=== PATIENT | female | born 1960 | race Caucasian/White ===

== ENCOUNTER 2024-06-29 09:44 | Inpatient (IN) | payer OTHER, MEDICAID ==
[~2024-06-29] VITALS: Ht 167.6 cm; Wt 74.1 kg
--- NOTE | 2024-06-29 10:02 | ED.PDOC ---
Altered Mental Status HPI Comments 64-year-old female brought in by EMS presents with a chief complaint of ALOC. Per EMS, called EMS due to patient having a mechanical fall at home today trying to use the restroom. Patient fell backwards, did not hit her head, nor did she lose consciousness. Patients is POA and wants patient mimi huang due to her increasing confusion. Patients husbands relayed to EMS that patient has been confused for the past few days. Patient is A/Ox2 at this time. Blood sugar was 96. Chief Complaint: ALOC Time Seen by MD: 09:54 Reviewed Notes: Medications, Allergies Allergies: Coded Allergies: NO KNOWN ALLERGIES (Unverified , 06/29/24) Information Source: Emergency Med Personnel Mode of Arrival: EMS Severity: Moderate, Unable to Care for Self Timing: Days Duration: Since onset Prehospital treatment: Accucheck Quality: Change in Behavior, Confusion Recent: Trauma (MECHANICAL FALL) History of: None Past Medical History PAST MEDICAL HISTORY: Anxiety, Arthritis, Depression Surgical History: Denies all surgeries HUB ASSOCIATE History: Denies all HUB ASSOCIATE Hx Family History Family History: Reviewed,noncontributory to illness Social History Smoker: Non-Smoker Alcohol: Denies ETOH Use Drugs: Denies Drug Use Lives In: Home Constitutional: denies: chills, diaphoresis, fatigue, fever, malaise, sweats, weakness, others EENTM: denies: blurred vision, double vision, ear bleeding, ear discharge, ear drainage, ear pain, ear ringing, eye pain, eye redness, hearing loss, mouth pain, mouth swelling, nasal discharge, nose bleeding, nose congestion, nose pain, photophobia, tearing, throat pain, throat swelling, voice changes, others Respiratory: denies: cough, hemoptysis, orthopnea, SOB at rest, shortness of breath, SOB with excertion, stridor, wheezing, others Cardiovascular: denies: chest pain, dizzy spells, diaphoresis, Dyspnea on exertion, edema, irregular heart beat, left arm pain, lightheadedness, palpitations, PND, syncope, others Gastrointestinal: denies: abdomen distended, abdominal pain, blood streaked bowels, constipated, diarrhea, dysphagia, difficulty swallowing, hematemesis, melena, nausea, poor appetite, poor fluid intake, rectal bleeding, rectal pain, vomiting, others Genitourinary: denies: abnormal vagina bleeding, burning, dyspareunia, dysuria, flank pain, frequency, hematuria, incontinence, pain, , vagina discharge, urgency, others Neurological: denies: dizziness, fainting, headache, left sided numbness, left sided weakness, numbness, paresthesia, pre-existing deficit, right sided numbness, right sided weakness, seizure, speech problems, tingling, tremors, weakness, others Musculoskeletal: denies: back pain, gout, joint pain, joint swelling, muscle pain, muscle stiffness, neck pain, others Integumetry: denies: bruises, change in color, change in hair/nails, dryness, laceration, lesions, lumps, rash, wounds, others Allergic/Immunocompromised: denies: Difficulty Healing, Frequent Infections, Hives, Itching, others Hematologic/Lymphatic: denies: anemia, blood clots, easy bleeding, easy bruising, swollen glands, others Endocrine: denies: excessive hunger, excessive sweating, excessive thirst, excessive urination, flushing, intolerance to cold, intolerance to heat, unexplained weight gain, unexplained weight loss, others Psychiatric: denies: anxiety, bipolar disorder, depression, hopeless, panic disorder, schizophrenia, sleepless, suicidal, others Unable to Obtain due to: Altered Mental Status All Other Systems: Reviewed and Negative Physical Exam General Appearance: No Apparent Distress, Normal HEENT: Normal ENT Inspection, Pharynx Normal, TMs Normal Neck: Full Range of Motion, Non-Tender, Normal, Normal Inspection Respiratory: Chest Non-Tender, Lungs Clear, No Accessory Muscle Use, No Respiratory Distress, Normal Breath Sounds Cardiovascular: No Edema, No JVD, No Murmur, No Gallop, Normal Peripheral Pulses, Regular Rate/Rhythm Breast Exam: Deferred Gastrointestinal: No Organomegaly, Non Tender, No Pulsatile Mass, Normal Bowel Sounds, Soft Genitalia: Deferred Pelvic: Deferred Rectal: Deferred Extremities: No calf tenderness, Normal capillary refill, Normal inspection, Normal range of motion, Non-tender, No pedal edema Musculoskeletal : Apperance: Normal Neurologic: Alert, creasing and cutting press feeder II-XII nml as Tested, No Motor Deficits, Normal Affect, Normal Mood, No Sensory Deficits Cerebellar Function: Normal Reflexes: Normal Skin: Dry, Normal Color, Warm Lymphatic: No Adenopathy Was a procedure done? Was a procedure done?: No Differential Diagnosis (ALOC) Differential Diagnosis: Dehydration, Hypoglycemia, Encephalopathy, Hypoxemia, Seizure, Closed Head Injury, Drug Overdose, ETOH Intoxication, Heart Failure, Renal Failure X-Ray, Labs, Meds, VS Vital Signs Date Time Temp Pulse Resp B/P (MAP) Pulse Ox O2 Delivery O2 Flow Rate FiO2 06/29/24 10:49 101 24 102/55 (71) 90 06/29/24 10:39 97 20 92 Room Air* 0 21 06/29/24 10:02 100 06/29/24 09:54 98.8 76 16 146/84 (104) 98 Lab Test 06/29/24 10:39 06/29/24 10:20 Range/Units White Blood Count 8.1 4.4-10.8 10^3/uL Red Blood Count 4.92 4.0-5.20 10^6/uL Hemoglobin 14.7 12.2-16.2 g/dL Hematocrit 44.3 36.0-46.0 % Mean Corpuscular Volume 90.1 80.0-100.0 fL Mean Corpuscular Hemoglobin 29.8 28.0-32.0 pg Mean Corpuscular Hemoglobin Concent 33.1 32.0-36.0 g/dL Red Cell Distribution Width 17.4 H 11.8-14.3 % Platelet Count 105 L 140-450 10^3/uL Mean Platelet Volume 8.1 6.9-10.8 fL Neutrophils (%) (Auto) 94.9 H 37.0-80.0 % Lymphocytes (%) (Auto) 3.9 L 10.0-50.0 % Monocytes (%) (Auto) 0.6 0.0-12.0 % Eosinophils (%) (Auto) 0.5 0.0-7.0 % Basophils (%) (Auto) 0.1 0.0-2.0 % Neutrophils # (Auto) 7.7 1.6-8.6 10 ^3/uL Lymphocytes # (Auto) 0.3 L 0.4-5.4 10 ^3/uL Monocytes # (Auto) 0.1 0-1.3 10 ^3/uL Eosinophils # (Auto) 0 0-0.8 10 ^3/uL Basophils # (Auto) 0 0-0.2 10 ^3/uL Nucleated Red Blood Cells 0.4 % Sodium Level 128 L 136-145 mmol/L Potassium Level 4.3 3.5-5.1 mmol/L Chloride Level 98 98-107 mmol/L Carbon Dioxide Level 22 20-31 mmol/L Anion Gap 8 5-15 Blood Urea Nitrogen 9 9-23 mg/dL Creatinine 0.84 0.550-1.02 mg/dL Glomerular Filtration Rate Calc 77 >90 mL/min BUN/Creatinine Ratio 10.7 10.0-20.0 Serum Glucose 85 74-106 mg/dL Calcium Level 9.2 8.7-10.4 mg/dL Troponin I High Sensitivity 74 *H </=34 ng/L POC Glucose 80 70-106 mg/dl Current Medications Medications (Trade) Dose Ordered Sig/[place] Route Start Time Stop Time Status Last Admin Sodium Chloride 1,000 ml @ 1,000 mls/hr Q1H ONCE IV 06/29/24 10:00 06/29/24 10:59 DC 06/29/24 11:10 Time of 1ST Reevaluation: 10:24 Reevaluation 1ST: Unchanged Patient Education/Counseling: Diagnosis, Treatment, Prognosis Family Education/Counseling: Diagnosis, Treatment, Prognosis Departure 1 Departure Time of Disposition: 13:31 (Patient with altered mental status unknown source. Checking labs UA x-ray and CT scan. X-rays concerning for possible pneumonia. We will empirically cover patient with antibiotics admit for further workup.) Impression: Primary Impression: Metabolic encephalopathy Additional Impressions: Altered mental status Qualified Codes: R41.0 - Disorientation, unspecified Left upper lobe pneumonia Qualified Codes: J18.9 - Pneumonia, unspecified organism Generalized weakness Disposition: ADMITTED INPATIENT Admit to: Med Surg Condition: Guarded Critical Care Note Critical Care Time?: Yes Critical care comment: Altered mental status Authorized and Performed by: Maikel Martin MD Total critical care time: Approximately 37 minutes Due to a high probability of clinically significant, life threatening deterioration, the patient required my highest level of preparedness to intervene emergently and I personally spent this critical care time directly and personally managing the patient. This critical care time included obtaining a history; examining the patient; pulse oximetry; ordering and review of studies; arranging urgent treatment with development of a management plan; evaluation of patient's response to treatment; frequent reassessment; and, discussions with other providers. This critical care time was performed to assess and manage the high probability of imminent, life-threatening deterioration that could result in multi-organ failure. It was exclusive of separately billable procedures and treating other patients and teaching time. Please see my other sections and the rest of the note for further information on patient assessment and treatment. Stability Stability form required: No I personally scribed for MAIKEL MARTIN MD ([email or web address]) on 06/29/24 at 10:02. Electronically submitted by Christiano Weller ([email or web address]). MAIKEL MARTIN MD Jun 29, 2024 10:02
--- NOTE | 2024-06-29 10:24 | DVH ---
EXAM: CT HEAD WITHOUT CONTRAST HISTORY: ams, fall COMPARISON: None TECHNIQUE: Axial images of the head were obtained and reformatted in coronal and sagittal planes. All CT scans at this medical facility are performed using dose modulation techniques as appropriate t o a performed exam including the following: Automated exposure control was utilized; adjustment of th e MA and/or KV according to patient size; and use of iterative reconstruction technique. CT Dose: CTDI volume is 58.13 mGy. Dose-length product is 1145.43 mGy*cm FINDINGS: There is no evidence of acute intracranial hemorrhage, mass, mass effect midline shift. There is no h ydrocephalus. There is a 2.6 cm retro cerebellar cystic collection likely an arachnoid cyst. Morris-whi te matter differentiation is maintained. The visualized paranasal sinuses are clear. The calvarium is intact. IMPRESSION: 1. No acute intracranial process. 2. 0.6 cm retro cerebellar cystic collection likely an arachnoid cyst. HS:Y
--- NOTE | 2024-06-29 10:25 | ECG ---
[facility] Test Date: 2024-06-29 Test Time: 10:02:19 Pat Name: HANS SUE Department: er Room: 0204T Gender: F Ehr Trainer: gustavo : 1960 Requested By: MAIKEL MARTIN Order Number: [id number] Reading MD: Sin Lock Measurements Intervals [place] Rate: 100 P: 79 CO: 146 QRS: 210 QRSD: 94 T: 66 QT: 313 QTc: 404 Interpretive Statements Sinus tachycardia Atrial premature complexes Probable left atrial enlargement Probable right ventricular hypertrophy Abnrm T, consider ischemia, anterolateral lds ST elevation, consider inferior injury Baseline wander in lead(s) II,III,aVF Electronically Signed On 07-04-2024 17:04:52 PST by Sin Lock Please click the below link to view image of tracing.
--- NOTE | 2024-06-29 10:34 | DVH ---
CHEST RADIOGRAPH Indication: ams, fall Technique: Single frontal view of the chest was obtained COMPARISON: None FINDINGS: Lines and Tubes: None Lungs: Left upper lobe airspace consolidation or scarring. Pleura: No effusion. No pneumothorax. Cardiomediastinal contours: Unremarkable Bones: Unremarkable IMPRESSION: Left upper lobe airspace consolidation or scarring.
[2024-06-29 10:39] VITALS: PULSE 97; RESP 20; O2SAT 92
[2024-06-29 10:51] LABS: Basophils # (auto) 0 10 ^3/uL (0-0.2); Basophils % (auto) 0.1 % (0.0-2.0); Eosinophils # (auto) 0 10 ^3/uL (0-0.8); Eosinophils % (auto) 0.5 % (0.0-7.0); Hematocrit 44.3 % (36.0-46.0); Hemoglobin 14.7 g/dL (12.2-16.2); Lymphocytes # (auto) 0.3 10 ^3/uL (0.4-5.4); Lymphocytes % (auto) 3.9 % (10.0-50.0); Mean Corpuscular Hemoglobin 29.8 pg (28.0-32.0); Mean Corpuscular Hgb Conc. 33.1 g/dL (32.0-36.0); Mean Corpuscular Volume 90.1 fL (80.0-100.0); Monocytes # (auto) 0.1 10 ^3/uL (0-1.3); Monocytes % (auto) 0.6 % (0.0-12.0); Neutrophils # (auto) 7.7 10 ^3/uL (1.6-8.6); Neutrophils % (auto) 94.9 % (37.0-80.0); Nucleated Red Blood Cells % 0.4 %; Platelet Count (auto) 105 10^3/uL (140-450); Red Blood Cells 4.92 10^6/uL (4.0-5.20); Red Cell Distribution Width 17.4 % (11.8-14.3); White Blood Cell 8.1 10^3/uL (4.4-10.8)
[2024-06-29] MEDS: SODIUM CHLORIDE 0.9% 1,000 ML IV ONE ×2 (11:10→13:30)
[2024-06-29 11:18] LABS: Chloride 98 mmol/L (98-107); Potassium 4.3 mmol/L (3.5-5.1)
[2024-06-29 11:19] LABS: Anion Gap 8 (5-15); Calcium 9.2 mg/dL (8.7-10.4); Carbon Dioxide 22 mmol/L (20-31)
[2024-06-29 11:24] LABS: BUN/Creatinine Ratio 10.7 (10.0-20.0); Blood Urea Nitrogen 9 mg/dL (9-23); Glucose 85 mg/dL (74-106)
[2024-06-29 11:32] LABS: Sodium 128 mmol/L (136-145)
[2024-06-29] MEDS: AZITHROMYCIN 500MG/ 250ML 250 ML IV ONE ×2 (13:30→23:00)
[2024-06-29] MEDS: ONDANSETRON HCL 4 MG/2 ML VIAL IV ONE (13:30)
[2024-06-29] MEDS: CEFEPIME 2GM/50ML NS 50 ML IV ONE (13:30)
[2024-06-29] MEDS: VANCOMYCIN 1GM/250ML KIT 200 ML IV ONE (14:42)
[2024-06-29] MEDS ORDERED: ACETAMINOPHEN 325 MG TAB PO PRN (14:45)
[2024-06-29] MEDS ORDERED: DOCUSATE SOD 100 MG CAP PO PRN (14:45)
[2024-06-29] MEDS ORDERED: ONDANSETRON HCL 4 MG/2 ML VIAL IV PRN (14:45)
[2024-06-29 14:51] LABS: Urine Bacteria None Seen /hpf (None Seen)
[2024-06-29 15:11] LABS: Urine Blood 1+ /uL (Negative); Urine Clarity Clear (Clear); Urine Color Yellow (Yellow); Urine Protein, UAD TRACE (Negative); Urine Specific Gravity 1.014 (1.001-1.035); Urine Squamous Epithelial Cell FEW /hpf (<5); Urine Urobilinogen Normal (Negative); Urine WBC 1 /HPF (0-5)
[2024-06-29] MEDS: SODIUM CHLORIDE 0.9% 1,000 ML IV SCH (15:46)
[2024-06-29] MEDS: ASPirin 81 mg TAB PO ONE (15:47)
--- NOTE | 2024-06-29 16:09 | DVHHP2 ---
History of Present Illness Reason for Visit: Metabolic encephalopathy History of Present Illness The patient is a 64-year-old female with past medical history of arthritis, depression, and anxiety who presented to [facility] ED for evaluation of altered level of consciousness. As reported patient's called EMS due to patient having a mechanical fall at home when she was trying to use the restroom, develop increasing confusion, left lower extremity redness/swelling, getting worse that prompted this visit. Patient was seen and evaluated in the ED, laboratory data shows WBC 8.1, platelets 105, sodium 128, potassium 4.3, BUN nine, creatinine 0.94, GFR 77, glucose 85, troponin 74. Chest x-ray revealing left upper lobe airspace consolidation or scarring. Patient was started on IV antibiotic regimen azithromycin, please see medication orders section in the computer. On my assessment, patient denied chest pain, no headache, no dizziness, no loss of consciousness, no shortness of breaths, no nausea, no vomiting, no fever, no chills. Patient was admitted for further bladimir luation and medical management. Past Medical History Anxiety, Arthritis, Depression Past Surgical History Denies all surgeries Family History Reviewed, noncontributory to the management of this case. Past Social History The patient lives at home, denies smoking, alcohol or illicit drugs abuse. Review of Systems Constitutional: Yes: Weakness; No: Fever, Chills, Sweats, Malaise, Other Eyes: No: Pain, Vision change, Conjunctivae inflammation, Eyelid inflammation, Other, Redness ENT: No: Ear pain, Ear discharge, Nose pain, Nose discharge, Nose congestion, Mouth pain, Mouth swelling, Throat pain, Throat swelling, Other Respiratory: No: Cough, Dry, Shortness of breath, SOB with excertion, Wheezing, Hemoptysis, Pleuritic Pain, Sputum, Wheezing, Other Cardiovascular: No: Chest Pain, Palpitations, Orthopnea, Paroxysmal Noc. Dyspnea, Edema, Lt Headedness, Other Gastrointestinal: No: Nausea, Vomiting, Abdominal Pain, Diarrhea, Constipation, Melena, Hematochezia, Other Genitourinary: No Dysuria, No Frequency, No Incontinence, No Hematuria, No Retention, No Other Musculoskeletal: other (Left lower extremity redness/swelling); No: neck pain, shoulder pain, arm pain, back pain, hand pain, leg pain, foot pain Skin: No: Rash, Lesions, Jaundice, Bruising, Other Neurological: No: Weakness, Numbness, Incoordination, Change in speech, Confusion, Seizures, Other Allergies: Coded Allergies: NO KNOWN ALLERGIES (Unverified , 06/29/24) Medications Current Medications Medications Dose Ordered Sig/[place] Route Start Time Stop Time Status Last Admin Dose Admin Fluoxetine HCl 20 mg DAILY PO 06/30/24 10:00 Gabapentin 100 mg DAILY PO 06/30/24 10:00 Azithromycin 250 ml @ 125 mls/hr DAILY IV 06/30/24 10:00 Aspirin 81 mg DAILY PO 06/30/24 10:00 Alprazolam 0.5 mg Q8HPRN PRN PO 06/29/24 14:45 Sodium Chloride 1,000 ml @ 120 mls/hr Q8H20M IV 06/29/24 14:45 06/29/24 15:46 120 MLS/HR Acetaminophen/ Hydrocodone Bitart 1 tab Q4HP PRN PO 06/29/24 14:45 Ondansetron HCl 4 mg Q4HP PRN IV 06/29/24 14:45 Docusate Sodium 100 mg BIDPRN PRN PO 06/29/24 14:45 Acetaminophen 650 mg Q6HP PRN PO 06/29/24 14:45 Exam Vital Signs Vital Signs Date Time Temp Pulse Resp B/P (MAP) Pulse Ox O2 Delivery O2 Flow Rate FiO2 06/29/24 10:49 101 24 102/55 (71) 90 06/29/24 10:39 Room Air* 0 21 06/29/24 09:54 98.8 General Appearance: Alert, Oriented X3, Cooperative, No acute distress HEENT: Atraumatic, PERRLA, EOMI, Mucous membr. moist/pink Respiratory: Normal air movement, Other (Diminished breath sounds) Cardiovascular: Regular rate, Normal S1, Normal S2, No murmurs Abdominal: Normal bowel sounds, Soft, No tenderness, No hepatospenomegaly, No masses Extremities: No clubbing, No cyanosis, No edema, Normal pulses, No tenderness/swelling Skin: No rashes, No breakdown, No significant lesion Neuro: Normal speech, Normal tone, Sensation intact, Cranial nerves 3-12 NL, Reflexes 2+, Other (Generalized weakness) Psych/Mental Status: Mental status NL, Mood NL Labs/Xrays Labs Test 06/29/24 14:30 06/29/24 10:39 06/29/24 10:20 06/29/24 10:13 Range/Units Troponin I High Sensitivity 64 *H </=34 ng/L White Blood Count 8.1 4.4-10.8 10^3/uL Red Blood Count 4.92 4.0-5.20 10^6/uL Hemoglobin 14.7 12.2-16.2 g/dL Hematocrit 44.3 36.0-46.0 % Mean Corpuscular Volume 90.1 80.0-100.0 fL Mean Corpuscular Hemoglobin 29.8 28.0-32.0 pg Mean Corpuscular Hemoglobin Concent 33.1 32.0-36.0 g/dL Red Cell Distribution Width 17.4 H 11.8-14.3 % Platelet Count 105 L 140-450 10^3/uL Mean Platelet Volume 8.1 6.9-10.8 fL Neutrophils (%) (Auto) 94.9 H 37.0-80.0 % Lymphocytes (%) (Auto) 3.9 L 10.0-50.0 % Monocytes (%) (Auto) 0.6 0.0-12.0 % Eosinophils (%) (Auto) 0.5 0.0-7.0 % Basophils (%) (Auto) 0.1 0.0-2.0 % Neutrophils # (Auto) 7.7 1.6-8.6 10 ^3/uL Lymphocytes # (Auto) 0.3 L 0.4-5.4 10 ^3/uL Monocytes # (Auto) 0.1 0-1.3 10 ^3/uL Eosinophils # (Auto) 0 0-0.8 10 ^3/uL Basophils # (Auto) 0 0-0.2 10 ^3/uL Nucleated Red Blood Cells 0.4 % Sodium Level 128 L 136-145 mmol/L Potassium Level 4.3 3.5-5.1 mmol/L Chloride Level 98 98-107 mmol/L Carbon Dioxide Level 22 20-31 mmol/L Anion Gap 8 5-15 Blood Urea Nitrogen 9 9-23 mg/dL Creatinine 0.84 0.550-1.02 mg/dL Glomerular Filtration Rate Calc 77 >90 mL/min BUN/Creatinine Ratio 10.7 10.0-20.0 Serum Glucose 85 74-106 mg/dL Calcium Level 9.2 8.7-10.4 mg/dL POC Glucose 80 70-106 mg/dl Urine Color Yellow Yellow Urine Clarity Clear Clear Urine pH 7.0 5.0-9.0 Urine Specific [place] 1.014 1.001-1.035 Urine Protein Trace H Negative Urine Ketones Negative Negative Urine Blood 1+ H Negative /uL Urine Nitrite Negative Negative Urine Bilirubin Negative Negative Urine Urobilinogen Normal Negative mg/dL Urine Leukocyte Esterase Negative Negative /uL Urine RBC 2 0 - 4 /hpf Urine Microscopic WBC 1 0-5 /HPF Urine Squamous Epithelial Cells Few <5 /hpf Urine Bacteria None seen None Seen /hpf Urine Glucose Normal Normal mg/dL PATIENT: KATHERINE SUE: [id number] UNIT: [id number] : 1960 LOC: ER ROOM / BED: / AGE / SEX: 64 / F ADM STATUS: REG ER SERVICE [id number] ORDERING PHYSICIAN: MAIKEL MARTIN MD PROCEDURE(s): HWOCT - HEAD WITHOUT CONTRAST REASON: , fall ORDER NUMBER(s): [id number], ACCESSION NUMBER(s): [id number] EXAM: CT HEAD WITHOUT CONTRAST HISTORY: , fall COMPARISON: None TECHNIQUE: Axial images of the head were obtained and reformatted in coronal and sagittal planes. All CT scans at this medical facility are performed using dose modulation techniques as appropriate to a performed exam including the following: Automated exposure control was utilized; adjustment of the MA and/or KV according to patient size; and use of iterative reconstruction technique. CT Dose: CTDI volume is 58.13 mGy. Dose-length product is 1145.43 mGy*cm FINDINGS: There is no evidence of acute intracranial hemorrhage, mass, mass effect midline shift. There is no hydrocephalus. There is a 2.6 cm retro cerebellar cystic collection likely an arachnoid cyst. Morris-white matter differentiation is maintained. The visualized paranasal sinuses are clear. The calvarium is intact. IMPRESSION: 1. No acute intracranial process. 2. 0.6 cm retro cerebellar cystic collection likely an arachnoid cyst. ORDERING PHYSICIAN: MAIKEL MARTIN MD PROCEDURE(s): CXRP - CHEST PORTABLE REASON: , fall ORDER NUMBER(s): [id number], ACCESSION NUMBER(s): [id number] CHEST RADIOGRAPH Indication: ams, fall Technique: Single frontal view of the chest was obtained COMPARISON: None FINDINGS: Lines and Tubes: None Lungs: Left upper lobe airspace consolidation or scarring. Pleura: No effusion. No pneumothorax. Cardiomediastinal contours: Unremarkable Bones: Unremarkable IMPRESSION: Left upper lobe airspace consolidation or scarring. Assessment/Plan Assessment/Plan Generalized weakness Altered mental status Pneumonia, unspecified organism Metabolic encephalopathy Disorientation, unspecified Left upper lobe pneumonia Plan 1. Admit to telemetry unit 2. Breathing treatment 3. Pain control management 4. IV antibiotic management 5. Management of fluids and electrolytes 6. Consultation for hospitalist 7. Diagnostic test chest x-ray 8. DVT prophylaxis on aspirin 9. Repeat labs CBC, CMP in a.m. 10. Home medication reviewed and reconciled 11. Continue with current medical management 12. Treatment plan discussed with patient and RN. Patient verbalized understanding. Plan discussed with: Patient, Other (RN) My Orders Orders - ANA MARÍA KABA DNP Procedure Category Date Status Time Fluoxetine Capsule PHA 06/30/24 In Process (Prozac Capsule) 10:00 Gabapentin Capsule PHA 06/30/24 In Process (Neurontin Capsule) 10:00 Azithromycin 500mg/ PHA 06/30/24 In Process 250ml (Zithromax 50 10:00 Aspirin Tablet PHA 06/30/24 In Process 10:00 Alprazolam Tablet PHA 06/29/24 In Process (Xanax Tablet) 14:45 Allergies MARY 06/29/24 In Process 14:35 Code Status CODE 06/29/24 Transmitted 14:35 Sodium Chloride 0.9% PHA 06/29/24 In Process 14:45 Oxygen Per Hour RT 06/29/24 Transmitted 14:35 Hydrocodone-Acet PHA 06/29/24 In Process 5/325mg Tab ([place] 14:45 Ondansetron Hcl PHA 06/29/24 In Process (Zofran) 14:45 Docusate Sodium PHA 06/29/24 In Process Capsule (Colace 14:45 Fall Risk Precautions MARY 06/29/[address] 14:35 Complete Blood Count LAB 06/30/24 Verified 04:00 Comprehensive LAB 06/30/24 Verified Metabolic Panel 04:00 Cardiac DIET 06/29/24 Transmitted Diet-2gna,Lofat,Lochol Dinner Condition: Serious MARY 06/29/24 In Process 14:35 Acetaminophen Tablet PHA 06/29/24 In Process (Tylenol Tablet) 14:45 Sequential MARY 06/29/24 In Process Compression Device Problem List: (1) Generalized weakness (2) Left upper lobe pneumonia (3) Metabolic encephalopathy (4) Altered mental status (5) Pneumonia, unspecified organism (6) Disorientation, unspecified Date of Service: Jun 29, 2024 Billing Provider: ANA MARÍA KABA DNP Common Visit Codes: 97531-NEANWLO INP/OBS CARE (HIGH) ANA MARÍA KABA DNP Jun 29, 2024 16:09
[2024-06-29] MEDS ORDERED: NITROGLYCERIN 0.4 MG SL TAB SL PRN ×2 (16:15→16:30)
[2024-06-29] MEDS ORDERED: MORPHINE SULFATE INJ 2 MG/ml SYRG IV PRN ×2 (16:15→16:30)
[2024-06-29 20:00] VITALS: PULSE 91; RESP 20; O2SAT 99
[2024-06-29 22:11] VITALS: BP 107/68; PULSE 96; RESP 19; TEMP 98; O2SAT 99
[2024-06-30] VITALS (7 sets, daily range): BP systolic 105–127; BP diastolic 56–61; PULSE 94–106; RESP 17–20; TEMP 98.2; O2SAT 96–100
[2024-06-30] MEDS: CEFEPIME 2GM/50ML NS 50 ML IV ONE (01:30)
[2024-06-30 10:02] LABS: Hepatitis B Surface Antigen Negative (Negative)
[2024-06-30 10:36] LABS: Hepatitis C Antibody Negative (Negative)
[2024-06-30] MEDS: FLUoxetine HCL 20 MG CAP PO SCH (12:20)
[2024-06-30] MEDS: ASPirin 81 mg TAB PO SCH (12:20)
[2024-06-30] MEDS: GABAPENTIN 100 MG CAP PO SCH (12:20)
[2024-06-30] MEDS: AZITHROMYCIN 500MG/ 250ML 250 ML IV SCH (12:21)
--- NOTE | 2024-06-30 14:58 | DVHPN2 ---
Subjective [age] IV Hold female with history of lung cancer, depression and anxiety, arthritis, comes with chief complaint of confusion, pneumonia, She was found to have a left upper lobe pneumonia and hyponatremia Changes from previous H/P or p: Changes Eyes: No Pain, No Vision change, No Conjunctivae inflammation, No Eyelid inflammation, No Other, No Redness ENT: No Ear pain, No Ear discharge, No Nose pain, No Nose discharge, No Nose congestion, No Mouth pain, No Mouth swelling, No Throat pain, No Throat swelling, No Other Cardiovascular: No Chest Pain, No Palpitations, No Orthopnea, No Paroxysmal Noc. Dyspnea, No Edema, No Lt Headedness, No Other Respiratory: No Cough, No Dry, No Shortness of breath, No SOB with excertion, No Wheezing, No Hemoptysis, No Pleuritic Pain, No Sputum, No Other Gastrointestinal: No Nausea, No Vomiting, No Abdominal Pain, No Diarrhea, No Constipation, No Melena, No Hematochezia, No Other Genitourinary: No Dysuria, No Frequency, No Incontinence, No Hematuria, No Retention, No Other Musculoskeletal: other (Left lower extremity redness/swelling); No neck pain, No shoulder pain, No arm pain, No back pain, No hand pain, No leg pain, No foot pain Skin: No Rash, No Lesions, No Jaundice, No Bruising, No Other Objective Vitals Vital Signs Date Time Temp Pulse Resp B/P (MAP) Pulse Ox O2 Delivery O2 Flow Rate FiO2 06/30/24 08:30 94 18 98 Nasal Cannula* 3 32 06/30/24 05:00 105/58 (74) 06/29/24 22:11 98.0 98.0 Intake/Output Intake and Output 06/30/24 07:00 Intake Total 4147 ml Output Total 650 ml Balance 3497 ml Intake Oral 267 ml IV Total 3880 ml Output Urine Total 650 ml General Appearance: Alert, Oriented X3, Cooperative Lungs: Clear to auscultation, Normal air movement Cardiovascular: Regular rate, Normal S1 Abdomen: Normal bowel sounds, Soft, No tenderness Extremities: No edema Medications Current Medications Medications Dose Ordered Sig/[place] Route Start Time Stop Time Status Last Admin Dose Admin Fluoxetine HCl 20 mg DAILY PO 06/30/24 10:00 06/30/24 12:20 20 MG Gabapentin 100 mg DAILY PO 06/30/24 10:00 06/30/24 12:20 100 MG Azithromycin 250 ml @ 125 mls/hr DAILY IV 06/30/24 10:00 06/30/24 12:21 125 MLS/HR Aspirin 81 mg DAILY PO 06/30/24 10:00 06/30/24 12:20 81 MG Alprazolam 0.5 mg Q8HPRN PRN PO 06/29/24 14:45 Sodium Chloride 1,000 ml @ 120 mls/hr Q8H20M IV 06/29/24 14:45 06/29/24 23:05 120 MLS/HR Acetaminophen/ Hydrocodone Bitart 1 tab Q4HP PRN PO 06/29/24 14:45 Ondansetron HCl 4 mg Q4HP PRN IV 06/29/24 14:45 Docusate Sodium 100 mg BIDPRN PRN PO 06/29/24 14:45 Acetaminophen 650 mg Q6HP PRN PO 06/29/24 14:45 Morphine Sulfate 2 mg Q30M PRN IV 06/29/24 16:30 Nitroglycerin 0.4 mg Q5MINP PRN SL 06/29/24 16:30 Laboratory Results Laboratory Tests 06/29/24 10:39 Urinalysis Test 06/29/24 10:13 Urine Color Yellow (Yellow) Urine Clarity Clear (Clear) Urine pH 7.0 (5.0-9.0) Urine Specific [place] 1.014 (1.001-1.035) Urine Protein Trace (Negative) H Urine Ketones Negative (Negative) Urine Blood 1+ /uL (Negative) H Urine Nitrite Negative (Negative) Urine Bilirubin Negative (Negative) Urine Urobilinogen Normal mg/dL (Negative) Urine Leukocyte Esterase Negative /uL (Negative) Urine RBC 2 /hpf (0 - 4) Urine Microscopic WBC 1 /HPF (0-5) Urine Squamous Epithelial Cells Few /hpf (<5) Urine Bacteria None seen /hpf (None Seen) Urine Glucose Normal mg/dL (Normal) Assessment/Plan Assessment/Plan Acute metabolic encephalopathy due to pneumonia and hyponatremia Hyponatremia Left upper lobe pneumonia Sepsis due to pneumonia Elevated troponin Anxiety and depression Arthritis Plan Pneumonia: IV antibiotics Rocephin and Zithromax Hyponatremia: Normal saline Oxygen as needed Elevated troponin: Aspirin , Echo, Cardiology consult Monitor closely Full code Advance directives discussed for 20 minute Plan discussed with: Patient Date of Service: Jun 30, 2024 Billing Provider: CHRISTIAN AGUILAR MD Common Visit Codes: [id number] INP/OBS CARE(HIGH) Secondary Visit Codes: [id number] CARE PLAN 30 MINUTES CHRISTIAN AGUILAR MD Jun 30, 2024 14:58
[2024-06-30 16:44] LABS: Chloride 100 mmol/L (98-107)
[2024-06-30 16:45] LABS: Anion Gap 5 (5-15); Carbon Dioxide 28 mmol/L (20-31)
[2024-06-30 16:46] LABS: Calcium 8.8 mg/dL (8.7-10.4)
[2024-06-30 16:50] LABS: Glucose 93 mg/dL (74-106)
[2024-06-30 16:51] LABS: BUN/Creatinine Ratio 20.9 (10.0-20.0); Blood Urea Nitrogen 14 mg/dL (9-23)
[2024-06-30 16:53] LABS: Potassium 3.4 mmol/L (3.5-5.1); Sodium 133 mmol/L (136-145)
[2024-06-30] MEDS: cefTRIAXone 1GM/50ML D5W 50 ML IV ONE (17:13)
--- NOTE | 2024-06-30 17:43 | DVHCONRES ---
Date Seen: Jun 30, 2024 Resident Creating Document: EVENS BRITT RESIDENT Referring Physician Dr. Rogel Reason for Consultation Elevated troponins History of Present Illness This is a 64-year-old female who was brought into the ED for evaluation of altered level of consciousness. She has a past medical history relevant for lung cancer, arthritis, depression, anxiety. Denies any surgical history Denies smoking, alcohol or illicit drug use. Patient was brought in after having a mechanical fall at home when she was trying to use the restroom, stated that the patient was confused, she had left lower extremity redness and swelling. In the ED they performed a chest x-ray which revealed a left upper lobe consolidation, she was started on IV antibiotics. Troponins were 74-64-67. An EKG revealed a rate of 100, sinus tachycardia, PACs, no ST-T changes On my examination, patient appeared confused, was unable to obtain full history, she stated feeling well, denied any symptoms such as shortness of breath, chest pain, dizziness, lightheadedness, abdominal pain. Family History: Patient reports no known family medical history. Allergies: Coded Allergies: NO KNOWN ALLERGIES (Unverified , 06/29/24) Current Medications Current Medications Medications (Trade) Dose Ordered Sig/[place] Route PRN Reason Start Time Stop Time Status Last Admin Fluoxetine HCl (PROzac CAPSULE) 20 mg DAILY PO 06/30/24 10:00 06/30/24 12:20 Gabapentin (Neurontin Capsule) 100 mg DAILY PO 06/30/24 10:00 06/30/24 12:20 Azithromycin 250 ml @ 125 mls/hr DAILY IV 06/30/24 10:00 06/30/24 12:21 Aspirin 81 mg DAILY PO 06/30/24 10:00 06/30/24 12:20 Ceftriaxone Sodium 50 ml @ 100 mls/hr DAILY@09 IV 07/01/24 09:00 Review of Systems Constitutional: Patient denies fevers, chills, sweats and weight changes. Eyes: Patient denies any visual symptoms. Ears, Nose, and Throat: No difficulties with hearing. No symptoms of rhinitis or sore throat. Cardiovascular: Patient denies chest pains, palpitations, orthopnea and paroxysmal nocturnal dyspnea. Respiratory: Shortness of breath and cough GI: No nausea, vomiting, diarrhea, constipation, abdominal pain, hematochezia or melena. : No urinary hesitancy or dribbling. No nocturia or urinary frequency. No abnormal urethral discharge. Musculoskeletal: No myalgias, arthralgias or edema. Neurologic: No chronic headaches, no seizures. Patient denies numbness, tingling or weakness. Psychiatric: Patient denies problems with mood disturbance. No problems with anxiety. Endocrine: No excessive urination or excessive thirst. Dermatologic: Patient denies any rashes or skin changes. Vital Signs Vital Signs Date Time Temp Pulse Resp B/P (MAP) Pulse Ox O2 Delivery O2 Flow Rate FiO2 06/30/24 17:00 94 17 127/56 (79) 100 06/30/24 08:30 Nasal Cannula* 3 32 06/29/24 22:11 98.0 98.0 Physical Exam General: Awake, alert, comfortable appearing, in no acute distress, somewhat confused. HEENT: Head is normocephalic and atraumatic. Pupils are equal, round, and reactive to light. Extraocular muscles are intact. No nasal discharge. Neck: Supple with no cervical lymphadenopathy No meningismus. No goiter. Heart: Tachycardic Lungs: Scattered crackles most prominent in the left side Abdomen: No external sign of injury. Bowel sounds are present. Abdomen is soft, nontender. No rebound, no guarding, no rigidity. There are no palpable masses. There is no flank pain on exam. Extremities: Strong peripheral pulses. There is no clubbing, no cyanosis, and no edema. Skin: Multiple skin excoriations throughout the body Neurologic: Cranial nerves II-XII intact without motor, sensory, or cerebellar deficit, no asterixis. Labs/Diagnostic Data Labs Test 06/30/24 15:57 06/30/24 08:49 06/29/24 19:12 06/29/24 10:39 Range/Units Sodium Level 133 #L 136-145 mmol/L Potassium Level 3.4 L 3.5-5.1 mmol/L Chloride Level 100 98-107 mmol/L Carbon Dioxide Level 28 20-31 mmol/L Anion Gap 5 5-15 Blood Urea Nitrogen 14 9-23 mg/dL Creatinine 0.67 0.550-1.02 mg/dL Glomerular Filtration Rate Calc 97 >90 mL/min BUN/Creatinine Ratio 20.9 H 10.0-20.0 Serum Glucose 93 74-106 mg/dL Calcium Level 8.8 8.7-10.4 mg/dL Hepatitis B Surface Antigen Negative Negative Hepatitis C Antibody Negative Negative Troponin I High Sensitivity 67 *H </=34 ng/L White Blood Count 8.1 4.4-10.8 10^3/uL Red Blood Count 4.92 4.0-5.20 10^6/uL Hemoglobin 14.7 12.2-16.2 g/dL Hematocrit 44.3 36.0-46.0 % Mean Corpuscular Volume 90.1 80.0-100.0 fL Mean Corpuscular Hemoglobin 29.8 28.0-32.0 pg Mean Corpuscular Hemoglobin Concent 33.1 32.0-36.0 g/dL Red Cell Distribution Width 17.4 H 11.8-14.3 % Platelet Count 105 L 140-450 10^3/uL Mean Platelet Volume 8.1 6.9-10.8 fL Neutrophils (%) (Auto) 94.9 H 37.0-80.0 % Lymphocytes (%) (Auto) 3.9 L 10.0-50.0 % Monocytes (%) (Auto) 0.6 0.0-12.0 % Eosinophils (%) (Auto) 0.5 0.0-7.0 % Basophils (%) (Auto) 0.1 0.0-2.0 % Neutrophils # (Auto) 7.7 1.6-8.6 10 ^3/uL Lymphocytes # (Auto) 0.3 L 0.4-5.4 10 ^3/uL Monocytes # (Auto) 0.1 0-1.3 10 ^3/uL Eosinophils # (Auto) 0 0-0.8 10 ^3/uL Basophils # (Auto) 0 0-0.2 10 ^3/uL Nucleated Red Blood Cells 0.4 % Test 06/29/24 10:20 06/29/24 10:13 Range/Units POC Glucose 80 70-106 mg/dl Urine Color Yellow Yellow Urine Clarity Clear Clear Urine pH 7.0 5.0-9.0 Urine Specific [place] 1.014 1.001-1.035 Urine Protein Trace H Negative Urine Ketones Negative Negative Urine Blood 1+ H Negative /uL Urine Nitrite Negative Negative Urine Bilirubin Negative Negative Urine Urobilinogen Normal Negative mg/dL Urine Leukocyte Esterase Negative Negative /uL Urine RBC 2 0 - 4 /hpf Urine Microscopic WBC 1 0-5 /HPF Urine Squamous Epithelial Cells Few <5 /hpf Urine Bacteria None seen None Seen /hpf Urine Glucose Normal Normal mg/dL Assessment NSTEMI likely type 2 related to underlying infection Metabolic encephalopathy due to pneumonia Sepsis Hyponatremia History of lung cancer Anxiety and depression Plan/Recommendation Pending echocardiogram Continue antibiotic therapy per primary team Repeat EKG Pending UDS, TSH, BNP, magnesium Elevated troponins are likely related to vascular demand, recommend continuing addressing underlying infection, we will continue to follow up on echocardio Case was discussed with Dr. Lock Plan discussed with: Patient EVENS BRITT RESIDENT Jun 30, 2024 17:43
[2024-06-30] MEDS: ALPRAZolam 0.5 MG TAB PO PRN (22:06)
[2024-07-01] VITALS (16 sets, daily range): BP systolic 81–102; BP diastolic 44–62; PULSE 83–147; RESP 17–28; TEMP 96.7–98.1; O2SAT 97–100
[2024-07-01] MEDS: dilTIAZem 25 MG/5 ML VIAL IV ONE (03:22)
[2024-07-01] MEDS: AMIODARONE BOLUS KIT 100 ML IV ONE ×2 (04:45→07:37)
[2024-07-01] MEDS ORDERED: AMIODARONE 360mg/200mL PREMIX 200 ML IV SCH ×2 (05:00→11:26)
[2024-07-01 05:13] LABS: Alkaline Phosphatase 99 U/L (46-116); Anion Gap 9 (5-15); Aspartate Aminotransferase 16 U/L (13-40); BUN/Creatinine Ratio 15.4 (10.0-20.0); Bilirubin, Total 0.7 mg/dL (0.2-1.0); Carbon Dioxide 23 mmol/L (20-31); Chloride 101 mmol/L (98-107); Cholesterol 101 mg/dL (< 200); LDL Cholesterol 65 mg/dL (< 100); Magnesium 1.8 mg/dL (1.6-2.6); Triglycerides 77 mg/dL (< 150)
[2024-07-01 05:14] LABS: Alanine Aminotransferase < 9 U/L (7-40); Blood Urea Nitrogen 8 mg/dL (9-23); Calcium 8.6 mg/dL (8.7-10.4); Glucose 115 mg/dL (74-106); HDL Cholesterol 28 mg/dL (40-59); Potassium 3.5 mmol/L (3.5-5.1); Sodium 133 mmol/L (136-145); Total Protein 5.7 g/dL (5.7-8.2)
--- NOTE | 2024-07-01 07:30 | RESUS ---
CODE ASSIST ASSESSSMENT Situation Situation comment: PT HAD BEEN TACHYCARDIC MOST OF TONIGHT, 0420 PT WENT INTO SVT AT 165. Background Background: 64-year-old female brought in by EMS presents with a chief complaint of ALOC. Per EMS, called EMS due to patient having a mechanical fall at home today trying to use the restroom. Patient fell backwards, did not hit her head, nor did she lose consciousness. Patients is POA and wants patient evaluated due to her increasing confusion. Patients husbands relayed to EMS that patient has been confused for the past few days. Patient is A/Ox2 at this time. Blood sugar was 96. PT WAS ADMITTED FOR PNEUMONIA. Assessment Temperature (Fahrenheit): 97.6 Blood Pressure Systolic: 102 Blood Pressure Diastolic: 44 Respiratory Rate: 18 O2 Sat by Pulse Oximetry: 100 Assessment comment: PT AAOX3, DENIES CHEST PAIN. PT ON MONITOR. Recommendations/Interventions Medications and Responses #1: Medication Time: 04:31 Route of Administration: IV Medication Comment: ADENOSIN 6 MG. Heart Rate: 156 EKG Rhythm: SVT Blood Pressure Systolic: 117 Blood Pressure Diastolic: 74 Respiratory Rate: 20 O2 Sat by Pulse Oximetry: 99 Medications and Responses #2: Medication Time: 04:34 Route of Administration: IV Medication Comment: ADENOSIN 12MG IV Heart Rate: 156 EKG Rhythm: SVT Blood Pressure Systolic: 122 Blood Pressure Diastolic: 66 Respiratory Rate: 18 O2 Sat by Pulse Oximetry: 99 Medications and Responses #3: Medication Time: 04:38 Route of Administration: IV Medication Comment: AMIODORONE 150 MG Heart Rate: 160 EKG Rhythm: SVT Blood Pressure Systolic: 105 Blood Pressure Diastolic: 56 Respiratory Rate: 20 O2 Sat by Pulse Oximetry: 99 Medications and Responses #4: Medication Time: 04:49 Medication Comment: AMIODORONE PROTOCOL AT 1MG Heart Rate: 0 Blood Pressure Systolic: 91 Blood Pressure Diastolic: 58 Respiratory Rate: 20 O2 Sat by Pulse Oximetry: 99 Procedures: CMP, Cardiac Monitoring Outcome Outcome: Problem Resolved Team Members Team Members ANGEL ANGLIN, TARYN RESIDENT, CARRINGTON HARDEN HS, PAT RN, JAVI RN, YUNIOR RN, CHICA RN, ALFONSO RN, CELSO RT. CARRINGTON DORAN Jul 01, 2024 07:30
[2024-07-01] MEDS: ADENOSINE 6 MG/2 ML INJ IV ONE ×2 (07:37)
[2024-07-01] MEDS: AMIODARONE BOLUS KIT 0 ML IV ONE (07:37)
[2024-07-01] MEDS: AMIODARONE 360mg/200mL PREMIX 200 ML IV ONE (07:37)
[2024-07-01] MEDS: cefTRIAXone 1GM/50ML D5W 50 ML IV SCH (08:38)
--- NOTE | 2024-07-01 10:19 | DVHPN2 ---
Subjective She is somewhat more alert Blood pressure is still low Sodium is better at 133 She went into tachycardia this morning and was given adenosine which did not work and then she was started on IV amiodarone drip which seems to control her heart rate Changes from previous H/P or p: Changes Eyes: No Pain, No Vision change, No Conjunctivae inflammation, No Eyelid inflammation, No Other, No Redness ENT: No Ear pain, No Ear discharge, No Nose pain, No Nose discharge, No Nose congestion, No Mouth pain, No Mouth swelling, No Throat pain, No Throat swelling, No Other Cardiovascular: No Chest Pain, No Palpitations, No Orthopnea, No Paroxysmal Noc. Dyspnea, No Edema, No Lt Headedness, No Other Respiratory: No Cough, No Dry, No Shortness of breath, No SOB with excertion, No Wheezing, No Hemoptysis, No Pleuritic Pain, No Sputum, No Other Gastrointestinal: No Nausea, No Vomiting, No Abdominal Pain, No Diarrhea, No Constipation, No Melena, No Hematochezia, No Other Genitourinary: No Dysuria, No Frequency, No Incontinence, No Hematuria, No Retention, No Other Musculoskeletal: other (Left lower extremity redness/swelling); No neck pain, No shoulder pain, No arm pain, No back pain, No hand pain, No leg pain, No foot pain Skin: No Rash, No Lesions, No Jaundice, No Bruising, No Other Objective Vitals Vital Signs Date Time Temp Pulse Resp B/P (MAP) Pulse Ox O2 Delivery O2 Flow Rate FiO2 07/01/24 09:00 97.5 106 18 99/54 (69) 100 97.5 06/30/24 20:00 Nasal Cannula* 2 28 Intake/Output Intake and Output 07/01/24 07:00 Intake Total 1090 ml Output Total 525 ml Balance 565 ml Intake Oral 840 ml IV Total 250 ml Output Urine Total 525 ml General Appearance: Alert, Oriented X3, Cooperative Lungs: Clear to auscultation, Normal air movement Cardiovascular: Regular rate, Normal S1 Abdomen: Normal bowel sounds, Soft, No tenderness Extremities: No edema Medications Current Medications Medications Dose Ordered Sig/[place] Route Start Time Stop Time Status Last Admin Dose Admin Fluoxetine HCl 20 mg DAILY PO 06/30/24 10:00 07/01/24 09:35 20 MG Gabapentin 100 mg DAILY PO 06/30/24 10:00 07/01/24 09:36 100 MG Azithromycin 250 ml @ 125 mls/hr DAILY IV 06/30/24 10:00 07/01/24 09:36 125 MLS/HR Aspirin 81 mg DAILY PO 06/30/24 10:00 07/01/24 09:35 81 MG Alprazolam 0.5 mg Q8HPRN PRN PO 06/29/24 14:45 06/30/24 22:06 0.5 MG Sodium Chloride 1,000 ml @ 120 mls/hr Q8H20M IV 06/29/24 14:45 07/01/24 00:05 120 MLS/HR Acetaminophen/ Hydrocodone Bitart 1 tab Q4HP PRN PO 06/29/24 14:45 Ondansetron HCl 4 mg Q4HP PRN IV 06/29/24 14:45 Docusate Sodium 100 mg BIDPRN PRN PO 06/29/24 14:45 Acetaminophen 650 mg Q6HP PRN PO 06/29/24 14:45 Morphine Sulfate 2 mg Q30M PRN IV 06/29/24 16:30 Nitroglycerin 0.4 mg Q5MINP PRN SL 06/29/24 16:30 Ceftriaxone Sodium 50 ml @ 100 mls/hr DAILY@09 IV 07/01/24 09:00 07/01/24 08:38 100 MLS/HR Laboratory Results Laboratory Tests 07/01/24 04:45 Chemistry Test 06/30/24 15:57 07/01/24 04:45 Calcium Level 8.8 mg/dL (8.7-10.4) 8.6 mg/dL (8.7-10.4) L Albumin 3.0 g/dL (3.2-4.8) L Magnesium Level 1.8 mg/dL (1.6-2.6) Total Protein 5.7 g/dL (5.7-8.2) Lipid panel Test 07/01/24 04:45 Cholesterol Level 101 mg/dL (< 200) HDL Cholesterol 28 mg/dL (40-59) L Triglycerides Level 77 mg/dL (< 150) Cardiac Markers Test 07/01/24 04:45 B-Type Natriuretic Peptide Pending LFT Test 07/01/24 04:45 Alanine Aminotransferase (ALT) < 9 U/L (7-40) Alkaline Phosphatase 99 U/L (46-116) Aspartate Amino Transferase (AST) 16 U/L (13-40) Total Bilirubin 0.7 mg/dL (0.2-1.0) HgA1c, TSH Test 07/01/24 04:45 Thyroid Stimulating Hormone (TSH) 4.94 uIU/mL (0.55-4.78) H Urinalysis Test 06/29/24 10:13 Urine Color Yellow (Yellow) Urine Clarity Clear (Clear) Urine pH 7.0 (5.0-9.0) Urine Specific [place] 1.014 (1.001-1.035) Urine Protein Trace (Negative) H Urine Ketones Negative (Negative) Urine Blood 1+ /uL (Negative) H Urine Nitrite Negative (Negative) Urine Bilirubin Negative (Negative) Urine Urobilinogen Normal mg/dL (Negative) Urine Leukocyte Esterase Negative /uL (Negative) Urine RBC 2 /hpf (0 - 4) Urine Microscopic WBC 1 /HPF (0-5) Urine Squamous Epithelial Cells Few /hpf (<5) Urine Bacteria None seen /hpf (None Seen) Urine Glucose Normal mg/dL (Normal) Assessment/Plan Assessment/Plan Acute metabolic encephalopathy due to pneumonia and hyponatremia Hyponatremia Left upper lobe pneumonia Sepsis due to pneumonia Elevated troponin Anxiety and depression Arthritis Plan Pneumonia: IV antibiotics Rocephin and Zithromax Hyponatremia: Normal saline Oxygen as needed Elevated troponin: Aspirin , Echo, Cardiology consult Monitor closely Full code Advance directives discussed for 20 minute 07/01/2024: Atrial fibrillation with RVR: Continue amiodarone drip , start Lovenox subcutaneously Echocardiogram Cardiology consultation Hyponatremia: Continue IV fluids Pneumonia: Continue IV antibiotics Cachexia Elevated troponin Acute metabolic encephalopathy due to the above: CT scan of the head is negative, order MRI of the brain Hypomagnesemia: Replace IV Plan discussed with: Patient, Spouse My Orders Orders - CHRISTIAN AGUILAR MD Procedure Category Date Status Time * Cardiology Consult CONS 06/30/24 Transmitted 14:55 Ceftriaxone 1gm/50ml PHA 07/01/24 In Process D5w (Rocephin) 09:00 Date of Service: Jul 01, 2024 Billing Provider: CHRISTIAN AGUILAR MD Common Visit Codes: [id number] INP/OBS CARE(HIGH) CHRISTIAN AGUILAR MD Jul 01, 2024 10:19
[2024-07-01 10:49] LABS: Hematocrit 38.1 % (36.0-46.0); Hemoglobin 12.5 g/dL (12.2-16.2); Mean Corpuscular Hemoglobin 29.3 pg (28.0-32.0); Mean Corpuscular Hgb Conc. 32.7 g/dL (32.0-36.0); Mean Corpuscular Volume 89.5 fL (80.0-100.0); Platelet Count (auto) 73 10^3/uL (140-450); Red Blood Cells 4.26 10^6/uL (4.0-5.20); Red Cell Distribution Width 17.4 % (11.8-14.3)
[2024-07-01 11:01] LABS: Free T4 (Free Thyroxine) 0.85 ng/dL (0.89-1.76)
[2024-07-01 11:02] LABS: T3 Total 0.8 ng/mL (0.60-1.81)
[2024-07-01] MEDS: AMIODARONE 360mg/200mL PREMIX 200 ML IV PRN (11:02)
[2024-07-01 11:13] LABS: Band Neutrophils % (manual) 0; Basophils % (manual) 0 (0.0-2.0); Blast Cells 0; Metamyelocytes % 0; Myelocytes % 0; Promyelocytes % 0; Reactive Lymphocytes 0
--- NOTE | 2024-07-01 11:52 | DVH ---
CAROTID ARTERIAL DOPPLER CLINICAL HISTORY: ALOC TECHNIQUE: Doppler study of bilateral carotid/vertebral arteries were performed. Comparison: None FINDINGS: There are [id number] nonocclusive calcified atherosclerotic plaques in the right carotid bulb e xtending into the proximal right ICA. The bilateral common carotid, external and internal carotid art eries appear patent without hemodynamically significant stenosis. The spectral wave forms and peak s ystolic velocities are within normal limits. Antegrade flow is present within the vertebral arteries with appropriate velocities and waveforms. Right ICA/CCA PSV ratio = 1.6. Left ICA/CCA PSV ratio = 0.7 . IMPRESSION: 1. No hemodynamically significant stenosis within the carotid arteries. HS:Y
[2024-07-01] MEDS: MAGNESIUM SULFATE 1GM/100ML 100 ML IV SCH (12:10)
[2024-07-01 12:43] LABS: Eosinophils % (manual) 2 (0-7); Lymphocytes % (manual) 13 (10.0-50.0); Monocytes % (manual) 3 (0-12)
[2024-07-01 12:44] LABS: Platelet Estimate Decreased
--- NOTE | 2024-07-01 13:42 | ECG ---
[facility] Test Date: 2024-07-01 Test Time: 04:22:12 Pat Name: HANS SUE Department: Respiratoy Room: 0204T Gender: F Riffler Tender: ADARSH : 1960 Requested By: ALBERT ORTIZ Order Number: [id number] Reading MD: Sin Lock Measurements Intervals [place] Rate: 158 P: 85 TX: 54 QRS: 215 QRSD: 86 T: -40 QT: 341 QTc: 553 Interpretive Statements Supraventricular tachycardia Probable RVH w/ secondary repol abnormality Probable inferior infarct, old Electronically Signed On 07-04-2024 15:57:23 PST by Sin Lock Please click the below link to view image of tracing.
--- NOTE | 2024-07-01 13:43 | ECG ---
[facility] Test Date: 2024-07-01 Test Time: 05:00:00 Pat Name: HANS SUE Department: Respiratoy Room: 0204T Gender: F Color Blender: ADARSH : 1960 Requested By: EVENS WYNN Order Number: [id number] Reading MD: Sin Lock Measurements Intervals [place] Rate: 145 P: 0 MD: 0 QRS: 210 QRSD: 87 T: -30 QT: 299 QTc: 465 Interpretive Statements Atrial flutter with predominant 2:1 AV block Probable RVH w/ secondary repol abnormality Probable inferior infarct, old Consider anterolateral infarct Baseline wander in lead(s) V3 Electronically Signed On 07-04-2024 15:57:40 PST by Sin Lock Please click the below link to view image of tracing.
[2024-07-01] MEDS: ENOXAPARIN SOD 60 MG/0.6 ML SYRINGE SC ONE (13:55)
--- NOTE | 2024-07-01 15:37 | DVH ---
EXAMINATION: MRI BRAIN HEAD WO CONTRAST INDICATION: ALOC COMPARISON: None TECHNIQUE: Multiplanar, multisequence magnetic resonance imaging of the brain was performed without the use of i ntravenous contrast. FINDINGS: No evidence of acute or remote infarct. No intracranial hemorrhage. No mass effect. There is periventricular/deep white matter T2/FLAIR hyperintensity is nonspecific, but most commonly associated with chronic microvascular disease. The ventricles and sulci are normal in size for age. Clear basal cisterns. Flow voids in the major intracranial vessels are maintained. No abnormality of the orbits. Paranasal sinuses and mastoid air cells are clear. No abnormality of the visualized osseous structures and extracranial soft tissues. There is a 2.6 cm retro cerebellar cystic collection likely an arachnoid cyst. IMPRESSION: No acute infarct, intracranial hemorrhage, mass effect, or hydrocephalus.
[2024-07-01] MEDS ORDERED: ADENOSINE 6 MG/2 ML INJ IV ONE (15:38)
--- NOTE | 2024-07-01 20:10 | DVHSR ---
APPROVED REPORT EXAM: Two-dimensional and M-mode echocardiogram with Doppler and color Doppler. Blood Pressure: 105/58 mmHg INDICATION Elevated troponin RISK FACTORS Height: 5'6", Weight: 153 DIMENSIONS LVDd3.9 (3.8-5.7cm)LA (2D)3.9 (1.9-4.0cm)Aortic Root3.6 (2.0-3.7cm) LVDs2.7 (2.5-4.0cm)LA (MM) (1.9-4.0cm)Aortic Cusp Exc1.0 (1.5-2.0cm) EF (%) 60.0 (55-70%)Rt. Atrium3.9 (1.9-4.0cm)Asc. Aorta cm IVSd1.1 (0.7-1.1cm)RV (D)3.8 (1.8-2.4cm) PWd1.1 (0.7-1.1cm) Mitral Valve MitralMitral Stenosis E wave0.83m/sMV Mean GR.mmHg A wave0.85m/sMV Peak GR.mmHg E/A ratio1.02D MVAcm2 DECEL [id number] 1/2 Timems Aortic Valve Aortic ValveAortic Stenosis V11.28m/Niharika Mean GR.11mmHg V22.40m/Niharika Peak GR.23mmHg LVOT Diameter2.0 (1.8-2.4cm)Doppler AVA1.67cm2 AI P 1/2 Vwdb622.91ms Pulmonic Valve V20.89m/s Tricuspid Valve TR Velocity3.52m/s [id number] Conclusion Technically good study. Sinus rhythm. Mild aortic sclerosis without stenosis. The mitral tricuspid and pulmonic or structurally normal. Mild RV dilatation. EF of 65% with normal RV function. Moderate aortic insufficiency. Mild mitral insufficiency. [id number]-[id number] tricuspid regurgitation. No pericardial effusion masses or vegetations discernible.
--- NOTE | 2024-07-01 20:12 | DVHPN2 ---
Progress Note Date Seen: Jul 01, 2024 Resident Creating Document: EVENS BRITT RESIDENT Medical Necessity Reason Pt with a Central, PICC or Fol: No Subjective Review of Systems Patient was seen and examined at bedside. She states feeling well, denies any acute complain. Overnight events reviewed, patient went into an SVT, she was given adenosine x2, diltiazem x1 and placed on amiodarone drip with bolus. Patient converted back to sinus, blood pressures became softer. Objective vital signs Vital Sign Date Time Temp Pulse Resp B/P (MAP) Pulse Ox O2 Delivery O2 Flow Rate FiO2 07/01/24 16:38 97.5 90 18 91/49 (63) 100 97.5 07/01/24 08:30 Nasal Cannula* 3 32 Total Intake and Output 06/30/24 06/30/24 07/01/24 15:00 23:00 07:00 Intake Total 250 ml 240 ml 600 ml Output Total 250 ml 275 ml Balance 250 ml -10 ml 325 ml medications Current Medications Medications Dose Ordered Sig/[place] Route Start Time Stop Time Status Last Admin Dose Admin Fluoxetine HCl 20 mg DAILY PO 06/30/24 10:00 07/01/24 09:35 20 MG Gabapentin 100 mg DAILY PO 06/30/24 10:00 07/01/24 09:36 100 MG Azithromycin 250 ml @ 125 mls/hr DAILY IV 06/30/24 10:00 07/01/24 09:36 125 MLS/HR Aspirin 81 mg DAILY PO 06/30/24 10:00 07/01/24 09:35 81 MG Alprazolam 0.5 mg Q8HPRN PRN PO 06/29/24 14:45 06/30/24 22:06 0.5 MG Sodium Chloride 1,000 ml @ 120 mls/hr Q8H20M IV 06/29/24 14:45 07/01/24 00:05 120 MLS/HR Acetaminophen/ Hydrocodone Bitart 1 tab Q4HP PRN PO 06/29/24 14:45 Ondansetron HCl 4 mg Q4HP PRN IV 06/29/24 14:45 Docusate Sodium 100 mg BIDPRN PRN PO 06/29/24 14:45 Acetaminophen 650 mg Q6HP PRN PO 06/29/24 14:45 Morphine Sulfate 2 mg Q30M PRN IV 06/29/24 16:30 Nitroglycerin 0.4 mg Q5MINP PRN SL 06/29/24 16:30 Ceftriaxone Sodium 50 ml @ 100 mls/hr DAILY@09 IV 07/01/24 09:00 07/01/24 08:38 100 MLS/HR Enoxaparin Sodium 60 mg Q12HR SC 07/01/24 22:00 Future hold Amiodarone HCl 200 mg Q12HR PO 07/01/24 22:00 Examination General: Awake, alert, comfortable appearing, in no acute distress, HEENT: Head is normocephalic and atraumatic. Pupils are equal, round, and reactive to light. Extraocular muscles are intact. No nasal discharge. Neck: Supple with no cervical lymphadenopathy No meningismus. No goiter. Heart: Normal rate, S1 and S2 Lungs: Scattered crackles most prominent in the left side Abdomen: No external sign of injury. Bowel sounds are present. Abdomen is soft, nontender. No rebound, no guarding, no rigidity. There are no palpable masses. There is no flank pain on exam. Extremities: Strong peripheral pulses. There is no clubbing, no cyanosis, and no edema. Skin: Multiple skin excoriations throughout the body laboratory and microbiology Laboratory Tests 07/01/24 10:15 07/01/24 04:45 Test 07/01/24 04:45 Range/Units Serum Glucose 115 H 74-106 mg/dL Labs and/or images reviewed: Labs reviewed by me, Image(s) reviewed by me Problem List/Assessment/Plan Problem List/Assessment/Plan NSTEMI likely type 2 related to underlying infection Atrial flutter, likely related to underlying infection Aortic insufficiency, moderate Metabolic encephalopathy due to pneumonia Sepsis Hyponatremia History of lung cancer Anxiety and depression Plan/Recommendation Pending echocardiogram, it demonstrates moderate aortic insufficiency [id number]: 2 points. Therapeutic lovenox Discontinue amiodarone drip, start amiodarone 200mg po bid Continue antibiotic therapy per primary team Elevated troponins and atrial flutter are likely related to vascular demand, recommend continuing addressing underlying infection Case was discussed with Dr. Lock Plan discussed with: Patient, Spouse, Other (rn) My Orders My Orders Orders - EVENS BRITT RESIDENT Procedure Category Date Status Time Covid19 Antigen Samantha LAB 07/01/24 Logged Rapid Influenza A&B LAB 07/01/24 Logged 11:32 Amiodarone Tablet PHA 07/01/24 In Process (Cordarone Tablet) 22:00 EVENS BRITT RESIDENT Jul 01, 2024 20:12
[2024-07-01] MEDS: AMIODARONE HCL 200 MG TAB PO SCH (21:10)
[2024-07-01] MEDS ORDERED: ENOXAPARIN SOD 60 MG/0.6 ML SYRINGE SC SCH (22:00)
[2024-07-01 22:10] LABS: COVID19 ANTIGEN SOFIA FIA NEGATIVE (NEGATIVE); Rapid Influenza A Negative (Negative); Rapid Influenza B Negative (Negative)
[2024-07-02] VITALS (11 sets, daily range): BP systolic 94–103; BP diastolic 55–63; PULSE 82–144; RESP 17–22; TEMP 97.3–98; O2SAT 98–100
[2024-07-02 07:02] LABS: Alkaline Phosphatase 115 U/L (46-116); Anion Gap 7 (5-15); Aspartate Aminotransferase 20 U/L (13-40); BUN/Creatinine Ratio 18.8 (10.0-20.0); Bilirubin, Total 0.4 mg/dL (0.2-1.0); Carbon Dioxide 24 mmol/L (20-31); Chloride 103 mmol/L (98-107); Glucose 99 mg/dL (74-106); Magnesium 2.2 mg/dL (1.6-2.6)
[2024-07-02 07:05] LABS: Alanine Aminotransferase < 9 U/L (7-40); Albumin 2.8 g/dL (3.2-4.8); Blood Urea Nitrogen 9 mg/dL (9-23); Calcium 8.4 mg/dL (8.7-10.4); Potassium 3.4 mmol/L (3.5-5.1); Sodium 134 mmol/L (136-145); Total Protein 5.2 g/dL (5.7-8.2)
[2024-07-02] MEDS ORDERED: AMIODARONE BOLUS KIT 100 ML IV ONE (09:15)
[2024-07-02] MEDS: HYDROcodone-ACET 5/325MG TAB PO PRN (10:02)
[2024-07-02 10:56] LABS: Hemoglobin 11.1 g/dL (12.2-16.2); Mean Corpuscular Hgb Conc. 32.8 g/dL (32.0-36.0); Platelet Count (auto) 43 10^3/uL (140-450); Red Blood Cells 3.82 10^6/uL (4.0-5.20); Red Cell Distribution Width 17.1 % (11.8-14.3)
[2024-07-02 10:58] LABS: Hematocrit 33.7 % (36.0-46.0); Mean Corpuscular Volume 88.4 fL (80.0-100.0)
--- NOTE | 2024-07-02 10:59 | DVH ---
EXAM: XY CHEST PORTABLE Indication: SOB Technique: Single frontal view of the chest was obtained Comparison: XY CHEST PORTABLE on DOS: 06/29/24 FINDINGS: Lines and Tubes: None Lungs: Multifocal left lung consolidative opacities. Pleura: No effusion. No pneumothorax. Cardiomediastinal contours: Unremarkable Bones: No acute osseous abnormality. IMPRESSION: Multifocal left lung consolidative opacities.
[2024-07-02 11:12] LABS: White Blood Cell 1.4 10^3/uL (4.4-10.8)
[2024-07-02 11:13] LABS: Basophils % (manual) 0 (0.0-2.0); Blast Cells 0; Metamyelocytes % 0; Myelocytes % 0; Promyelocytes % 0; Reactive Lymphocytes 0
--- NOTE | 2024-07-02 11:55 | DVHPN2 ---
Subjective No change She is a little better mentally White count dropped to 1.4 Platelets 43 Changes from previous H/P or p: Changes Eyes: No Pain, No Vision change, No Conjunctivae inflammation, No Eyelid inflammation, No Other, No Redness ENT: No Ear pain, No Ear discharge, No Nose pain, No Nose discharge, No Nose congestion, No Mouth pain, No Mouth swelling, No Throat pain, No Throat swelling, No Other Cardiovascular: No Chest Pain, No Palpitations, No Orthopnea, No Paroxysmal Noc. Dyspnea, No Edema, No Lt Headedness, No Other Respiratory: No Cough, No Dry, No Shortness of breath, No SOB with excertion, No Wheezing, No Hemoptysis, No Pleuritic Pain, No Sputum, No Other Gastrointestinal: No Nausea, No Vomiting, No Abdominal Pain, No Diarrhea, No Constipation, No Melena, No Hematochezia, No Other Genitourinary: No Dysuria, No Frequency, No Incontinence, No Hematuria, No Retention, No Other Musculoskeletal: other (Left lower extremity redness/swelling); No neck pain, No shoulder pain, No arm pain, No back pain, No hand pain, No leg pain, No foot pain Skin: No Rash, No Lesions, No Jaundice, No Bruising, No Other Objective Vitals Vital Signs Date Time Temp Pulse Resp B/P (MAP) Pulse Ox O2 Delivery O2 Flow Rate FiO2 07/02/24 09:01 97.3 143 22 98/63 (75) 100 97.3 07/02/24 07:30 Nasal Cannula* 3 32 Intake/Output Intake and Output 07/02/24 07:00 Intake Total 1258 ml Output Total 1125 ml Balance 133 ml Intake Oral 758 ml IV Total 500 ml Output Urine Total 1125 ml General Appearance: Alert, Oriented X3, Cooperative Lungs: Clear to auscultation, Normal air movement Cardiovascular: Regular rate, Normal S1 Abdomen: Normal bowel sounds, Soft, No tenderness Extremities: No edema Medications Current Medications Medications Dose Ordered Sig/[place] Route Start Time Stop Time Status Last Admin Dose Admin Fluoxetine HCl 20 mg DAILY PO 06/30/24 10:00 07/02/24 08:50 20 MG Gabapentin 100 mg DAILY PO 06/30/24 10:00 07/02/24 08:49 100 MG Aspirin 81 mg DAILY PO 06/30/24 10:00 07/02/24 08:49 81 MG Alprazolam 0.5 mg Q8HPRN PRN PO 06/29/24 14:45 06/30/24 22:06 0.5 MG Sodium Chloride 1,000 ml @ 120 mls/hr Q8H20M IV 06/29/24 14:45 07/02/24 01:05 120 MLS/HR Acetaminophen/ Hydrocodone Bitart 1 tab Q4HP PRN PO 06/29/24 14:45 07/02/24 10:02 1 TAB Ondansetron HCl 4 mg Q4HP PRN IV 06/29/24 14:45 Docusate Sodium 100 mg BIDPRN PRN PO 06/29/24 14:45 Acetaminophen 650 mg Q6HP PRN PO 06/29/24 14:45 Morphine Sulfate 2 mg Q30M PRN IV 06/29/24 16:30 Nitroglycerin 0.4 mg Q5MINP PRN SL 06/29/24 16:30 Ceftriaxone Sodium 50 ml @ 100 mls/hr DAILY@09 IV 07/01/24 09:00 07/02/24 08:49 100 MLS/HR Enoxaparin Sodium 60 mg Q12HR SC 07/01/24 22:00 Hold Doxycycline Hyclate 100 ml @ 50 mls/hr Q12H IV 07/02/24 10:30 UNV Laboratory Results Laboratory Tests 07/02/24 06:00 Chemistry Test 07/02/24 06:00 Albumin 2.8 g/dL (3.2-4.8) L Calcium Level 8.4 mg/dL (8.7-10.4) L Magnesium Level 2.2 mg/dL (1.6-2.6) Total Protein 5.2 g/dL (5.7-8.2) L LFT Test 07/02/24 06:00 Alanine Aminotransferase (ALT) < 9 U/L (7-40) Alkaline Phosphatase 115 U/L (46-116) Aspartate Amino Transferase (AST) 20 U/L (13-40) Total Bilirubin 0.4 mg/dL (0.2-1.0) Urinalysis Test 06/29/24 10:13 Urine Color Yellow (Yellow) Urine Clarity Clear (Clear) Urine pH 7.0 (5.0-9.0) Urine Specific [place] 1.014 (1.001-1.035) Urine Protein Trace (Negative) H Urine Ketones Negative (Negative) Urine Blood 1+ /uL (Negative) H Urine Nitrite Negative (Negative) Urine Bilirubin Negative (Negative) Urine Urobilinogen Normal mg/dL (Negative) Urine Leukocyte Esterase Negative /uL (Negative) Urine RBC 2 /hpf (0 - 4) Urine Microscopic WBC 1 /HPF (0-5) Urine Squamous Epithelial Cells Few /hpf (<5) Urine Bacteria None seen /hpf (None Seen) Urine Glucose Normal mg/dL (Normal) Assessment/Plan Assessment/Plan Acute metabolic encephalopathy due to pneumonia and hyponatremia Hyponatremia Left upper lobe pneumonia Sepsis due to pneumonia Elevated troponin Anxiety and depression Arthritis Neutropenia due to sepsis Thrombocytopenia due to sepsis Atrial flutter with rapid ventricular response Plan Pneumonia: IV antibiotics Rocephin and Zithromax Hyponatremia: Normal saline Oxygen as needed Elevated troponin: Aspirin , Echo, Cardiology consult Monitor closely Full code Advance directives discussed for 20 minute 07/01/2024: Atrial fibrillation with RVR: Continue amiodarone drip , start Lovenox subcutaneously Echocardiogram Cardiology consultation Hyponatremia: Continue IV fluids Pneumonia: Continue IV antibiotics Cachexia Elevated troponin Acute metabolic encephalopathy due to the above: CT scan of the head is negative, order MRI of the brain Hypomagnesemia: Replace IV 07/02/2024: Neutropenia: Neutropenic isolation Thrombocytopenia due to sepsis Pneumonia Continue IV antibiotics : Change Rocephin to Unasyn, continue doxycycline, add vancomycin Hyponatremia: Continue IV fluids with normal saline Discontinue the Gonzalez catheter Hypokalemia: Replace p.o. Atrial flutter: Continue amiodarone Ejection fraction 65% Cardiology consult Plan discussed with: Patient My Orders Orders - CHRISTIAN AGUILAR MD Procedure Category Date Status Time * Wound Consult CONS 07/02/24 Transmitted Date of Service: Jul 02, 2024 Billing Provider: CHRISTIAN AGUILAR MD Common Visit Codes: [id number] INP/OBS CARE(HIGH) CHRISTIAN AGUILAR MD Jul 02, 2024 11:55
[2024-07-02] MEDS ORDERED: VANCOMYCIN PER PHARMACY 0 MG IV SCH (12:00)
[2024-07-02 12:39] LABS: Band Neutrophils % (manual) 1; Eosinophils % (manual) 6 (0-7); Lymphocytes % (manual) 14 (10.0-50.0); Monocytes % (manual) 2 (0-12); Platelet Estimate Decreased
[2024-07-02] MEDS: POTASSIUM CHL 20 Meq TABLET PO ONE (13:43)
[2024-07-02] MEDS: DOXYCYCLINE 100MG/100ML 100 ML IV SCH (14:18)
[2024-07-02] MEDS: AMIODARONE 360mg/200mL PREMIX 200 ML IV ONE (14:19)
[2024-07-02] MEDS: AMPICILLIN & SULBACTAM SODIUM 3 GM in SODIUM CHL 0.9% 100 ML IV SCH (16:48)
[2024-07-02] MEDS: VANCOMYCIN 1GM/250ML KIT 250 ML IV ONE (18:00)
--- NOTE | 2024-07-02 18:06 | DVHPN2 ---
Progress Note Date Seen: Jul 02, 2024 Resident Creating Document: EVENS BRITT RESIDENT Medical Necessity Reason Pt with a Central, PICC or Fol: No Subjective Review of Systems Patient was seen and examined at bedside. She states feeling well, denies any acute complain. Patient remains on nasal cannula 3 L, appreciated mild shortness of breath, patient's heart rate has been fluctuating, she went back to atrial flutter up to the 140s, we started her back on amiodarone drip Objective vital signs Vital Sign Date Time Temp Pulse Resp B/P (MAP) Pulse Ox O2 Delivery O2 Flow Rate FiO2 07/02/24 17:24 97.9 125 20 100/62 (75) 98 97.9 07/02/24 07:30 Nasal Cannula* 3 32 Total Intake and Output 07/01/24 07/01/24 07/02/24 15:00 23:00 07:00 Intake Total 500 ml 358 ml 400 ml Output Total 375 ml 750 ml Balance 500 ml -17 ml -350 ml medications Current Medications Medications Dose Ordered Sig/[place] Route Start Time Stop Time Status Last Admin Dose Admin Fluoxetine HCl 20 mg DAILY PO 06/30/24 10:00 07/02/24 08:50 20 MG Gabapentin 100 mg DAILY PO 06/30/24 10:00 07/02/24 08:49 100 MG Aspirin 81 mg DAILY PO 06/30/24 10:00 07/02/24 08:49 81 MG Alprazolam 0.5 mg Q8HPRN PRN PO 06/29/24 14:45 06/30/24 22:06 0.5 MG Sodium Chloride 1,000 ml @ 120 mls/hr Q8H20M IV 06/29/24 14:45 07/02/24 01:05 120 MLS/HR Acetaminophen/ Hydrocodone Bitart 1 tab Q4HP PRN PO 06/29/24 14:45 07/02/24 14:40 1 TAB Ondansetron HCl 4 mg Q4HP PRN IV 06/29/24 14:45 Docusate Sodium 100 mg BIDPRN PRN PO 06/29/24 14:45 Acetaminophen 650 mg Q6HP PRN PO 06/29/24 14:45 Morphine Sulfate 2 mg Q30M PRN IV 06/29/24 16:30 Nitroglycerin 0.4 mg Q5MINP PRN SL 06/29/24 16:30 Enoxaparin Sodium 60 mg Q12HR SC 07/01/24 22:00 Hold Doxycycline Hyclate 100 ml @ 50 mls/hr Q12H IV 07/02/24 10:30 07/02/24 14:18 50 MLS/HR Ampicillin Sodium/ Sulbactam Sodium 3 gm/Sodium Chloride 100 ml @ 100 mls/hr Q6H IV 07/02/24 12:00 07/02/24 16:48 100 MLS/HR Vancomycin HCl 0 ml @ 0 mls/hr UD IV 07/02/24 12:00 Examination General: Awake, alert, comfortable appearing, in no acute distress, HEENT: Head is normocephalic and atraumatic. Pupils are equal, round, and reactive to light. Extraocular muscles are intact. No nasal discharge. Neck: Supple with no cervical lymphadenopathy No meningismus. No goiter. Heart: Normal rate, S1 and S2 Lungs: Scattered crackles most prominent in the left side Abdomen: No external sign of injury. Bowel sounds are present. Abdomen is soft, nontender. No rebound, no guarding, no rigidity. There are no palpable masses. There is no flank pain on exam. Extremities: Strong peripheral pulses. There is no clubbing, no cyanosis, and no edema. Skin: Multiple skin excoriations throughout the body laboratory and microbiology Laboratory Tests 07/02/24 06:00 Test 07/02/24 06:00 Range/Units Serum Glucose 99 74-106 mg/dL Labs and/or images reviewed: Labs reviewed by me, Image(s) reviewed by me Problem List/Assessment/Plan Problem List/Assessment/Plan NSTEMI likely type 2 related to underlying infection Atrial flutter, likely related to underlying infection Aortic insufficiency, moderate Metabolic encephalopathy due to pneumonia Sepsis Hyponatremia History of lung cancer Anxiety and depression Plan/Recommendation echocardiogram, it demonstrates moderate aortic insufficiency, EF 65% [id number]: 2 points. Therapeutic lovenox, held given thrombocytopenia Continue amiodarone drip Continue antibiotic therapy per primary team Elevated troponins and atrial flutter are likely related to vascular demand, recommend continuing addressing underlying infection Case was discussed with Dr. Lock Plan discussed with: Patient, Other (RN) My Orders My Orders Orders - EVENS BRITT RESIDENT Procedure Category Date Status Time Chest Portable XY 07/02/24 Resulted 09:02 Doxycycline PHA 07/02/24 In Process 100mg/100ml 10:30 EVENS BRITT RESIDENT Jul 02, 2024 18:06
[2024-07-03] VITALS (8 sets, daily range): BP systolic 93–113; BP diastolic 57–66; PULSE 78–129; RESP 17–19; TEMP 97.2–98.6; O2SAT 100
[2024-07-03] MEDS: VANCOMYCIN 1GM/250ML KIT 250 ML IV SCH (05:51)
[2024-07-03 06:05] LABS: Hemoglobin 10.5 g/dL (12.2-16.2); Platelet Count (auto) 24 10^3/uL (140-450)
[2024-07-03 06:10] LABS: Hematocrit 32.2 % (36.0-46.0); Mean Corpuscular Hemoglobin 29.1 pg (28.0-32.0); Mean Corpuscular Hgb Conc. 32.6 g/dL (32.0-36.0); Mean Corpuscular Volume 89.3 fL (80.0-100.0); Red Cell Distribution Width 17.4 % (11.8-14.3)
[2024-07-03 06:25] LABS: Alanine Aminotransferase 10 U/L (7-40); Anion Gap 6 (5-15); Carbon Dioxide 26 mmol/L (20-31); Chloride 105 mmol/L (98-107); Sodium 137 mmol/L (136-145)
[2024-07-03 06:27] LABS: Aspartate Aminotransferase 24 U/L (13-40); BUN/Creatinine Ratio 18.5 (10.0-20.0); Blood Urea Nitrogen 10 mg/dL (9-23); Glucose 93 mg/dL (74-106)
[2024-07-03 06:29] LABS: Bilirubin, Total 0.4 mg/dL (0.2-1.0); White Blood Cell 1.8 10^3/uL (4.4-10.8)
[2024-07-03 06:31] LABS: Band Neutrophils % (manual) 0; Basophils % (manual) 0 (0.0-2.0); Blast Cells 0; Metamyelocytes % 0; Myelocytes % 0; Promyelocytes % 0; Reactive Lymphocytes 0
[2024-07-03 06:42] LABS: Albumin 2.8 g/dL (3.2-4.8); Total Protein 5.3 g/dL (5.7-8.2)
[2024-07-03 06:55] LABS: Eosinophils % (manual) 7 (0-7); Lymphocytes % (manual) 9 (10.0-50.0); Monocytes % (manual) 3 (0-12); Platelet Estimate Decreased
[2024-07-03 06:59] LABS: Alkaline Phosphatase 139 U/L (46-116)
[2024-07-03] MEDS: AMIODARONE 360mg/200mL PREMIX 200 ML IV ONE (10:40)
--- NOTE | 2024-07-03 11:53 | DVHPN2 ---
Subjective She feels better Her white count is 1.8 Hemoglobin 10.5 Platelets 24 Changes from previous H/P or p: Changes Eyes: No Pain, No Vision change, No Conjunctivae inflammation, No Eyelid inflammation, No Other, No Redness ENT: No Ear pain, No Ear discharge, No Nose pain, No Nose discharge, No Nose congestion, No Mouth pain, No Mouth swelling, No Throat pain, No Throat swelling, No Other Cardiovascular: No Chest Pain, No Palpitations, No Orthopnea, No Paroxysmal Noc. Dyspnea, No Edema, No Lt Headedness, No Other Respiratory: No Cough, No Dry, No Shortness of breath, No SOB with excertion, No Wheezing, No Hemoptysis, No Pleuritic Pain, No Sputum, No Other Gastrointestinal: No Nausea, No Vomiting, No Abdominal Pain, No Diarrhea, No Constipation, No Melena, No Hematochezia, No Other Genitourinary: No Dysuria, No Frequency, No Incontinence, No Hematuria, No Retention, No Other Musculoskeletal: other (Left lower extremity redness/swelling); No neck pain, No shoulder pain, No arm pain, No back pain, No hand pain, No leg pain, No foot pain Skin: No Rash, No Lesions, No Jaundice, No Bruising, No Other Objective Vitals Vital Signs Date Time Temp Pulse Resp B/P (MAP) Pulse Ox O2 Delivery O2 Flow Rate FiO2 07/03/24 09:00 98.6 83 19 93/57 (69) 100 98.6 07/03/24 08:00 Nasal Cannula* 3 32 Intake/Output Intake and Output 07/03/24 07:00 Intake Total 1650 ml Output Total 250 ml Balance 1400 ml Intake Oral 1050 ml IV Total 600 ml Output Urine Total 250 ml # Voids 8 General Appearance: Alert, Oriented X3, Cooperative Lungs: Clear to auscultation, Normal air movement Cardiovascular: Regular rate, Normal S1 Abdomen: Normal bowel sounds, Soft, No tenderness Extremities: No edema Medications Current Medications Medications Dose Ordered Sig/[place] Route Start Time Stop Time Status Last Admin Dose Admin Fluoxetine HCl 20 mg DAILY PO 06/30/24 10:00 07/03/24 09:26 20 MG Gabapentin 100 mg DAILY PO 06/30/24 10:00 07/03/24 09:26 100 MG Aspirin 81 mg DAILY PO 06/30/24 10:00 07/02/24 08:49 81 MG Alprazolam 0.5 mg Q8HPRN PRN PO 06/29/24 14:45 06/30/24 22:06 0.5 MG Sodium Chloride 1,000 ml @ 120 mls/hr Q8H20M IV 06/29/24 14:45 07/03/24 03:50 120 MLS/HR Acetaminophen/ Hydrocodone Bitart 1 tab Q4HP PRN PO 06/29/24 14:45 07/03/24 07:32 1 TAB Ondansetron HCl 4 mg Q4HP PRN IV 06/29/24 14:45 Docusate Sodium 100 mg BIDPRN PRN PO 06/29/24 14:45 Acetaminophen 650 mg Q6HP PRN PO 06/29/24 14:45 Morphine Sulfate 2 mg Q30M PRN IV 06/29/24 16:30 Nitroglycerin 0.4 mg Q5MINP PRN SL 06/29/24 16:30 Enoxaparin Sodium 60 mg Q12HR SC 07/01/24 22:00 Hold Doxycycline Hyclate 100 ml @ 50 mls/hr Q12H IV 07/02/24 10:30 07/03/24 09:26 50 MLS/HR Ampicillin Sodium/ Sulbactam Sodium 3 gm/Sodium Chloride 100 ml @ 100 mls/hr Q6H IV 07/02/24 12:00 07/02/24 16:48 100 MLS/HR Vancomycin HCl 0 ml @ 0 mls/hr UD IV 07/02/24 12:00 Vancomycin HCl 250 ml @ 250 mls/hr Q12H IV 07/03/24 06:00 07/03/24 05:51 250 MLS/HR Laboratory Results Laboratory Tests 07/03/24 05:32 Chemistry Test 07/03/24 05:32 Albumin 2.8 g/dL (3.2-4.8) L Calcium Level 9.0 mg/dL (8.7-10.4) Magnesium Level 2.0 mg/dL (1.6-2.6) Total Protein 5.3 g/dL (5.7-8.2) L LFT Test 07/03/24 05:32 Alanine Aminotransferase (ALT) 10 U/L (7-40) Alkaline Phosphatase 139 U/L (46-116) H Aspartate Amino Transferase (AST) 24 U/L (13-40) Total Bilirubin 0.4 mg/dL (0.2-1.0) Urinalysis Test 06/29/24 10:13 Urine Color Yellow (Yellow) Urine Clarity Clear (Clear) Urine pH 7.0 (5.0-9.0) Urine Specific [place] 1.014 (1.001-1.035) Urine Protein Trace (Negative) H Urine Ketones Negative (Negative) Urine Blood 1+ /uL (Negative) H Urine Nitrite Negative (Negative) Urine Bilirubin Negative (Negative) Urine Urobilinogen Normal mg/dL (Negative) Urine Leukocyte Esterase Negative /uL (Negative) Urine RBC 2 /hpf (0 - 4) Urine Microscopic WBC 1 /HPF (0-5) Urine Squamous Epithelial Cells Few /hpf (<5) Urine Bacteria None seen /hpf (None Seen) Urine Glucose Normal mg/dL (Normal) Assessment/Plan Assessment/Plan Acute metabolic encephalopathy due to pneumonia and hyponatremia Hyponatremia Left upper lobe pneumonia Sepsis due to pneumonia Elevated troponin Anxiety and depression Arthritis Neutropenia due to sepsis Thrombocytopenia due to sepsis Atrial flutter with rapid ventricular response Plan Pneumonia: IV antibiotics Rocephin and Zithromax Hyponatremia: Normal saline Oxygen as needed Elevated troponin: Aspirin , Echo, Cardiology consult Monitor closely Full code Advance directives discussed for 20 minute 07/01/2024: Atrial fibrillation with RVR: Continue amiodarone drip , start Lovenox subcutaneously Echocardiogram Cardiology consultation Hyponatremia: Continue IV fluids Pneumonia: Continue IV antibiotics Cachexia Elevated troponin Acute metabolic encephalopathy due to the above: CT scan of the head is negative, order MRI of the brain Hypomagnesemia: Replace IV 07/02/2024: Neutropenia: Neutropenic isolation Thrombocytopenia due to sepsis Pneumonia Continue IV antibiotics : Change Rocephin to Unasyn, continue doxycycline, add vancomycin Hyponatremia: Continue IV fluids with normal saline Discontinue the Gonzalez catheter Hypokalemia: Replace p.o. Atrial flutter: Continue amiodarone Ejection fraction 65% Cardiology consult 07/03/2024: Pancytopenia due to sepsis Pneumonia Sepsis Continue IV antibiotics Unasyn and doxycycline and vancomycin Atrial fibrillation: Continue amiodarone drip Monitor closely Neutropenic precautions Thrombocytopenia: Monitor for any bleeding The rest of the management will depend on the hospital course Plan discussed with: Patient, Spouse My Orders Orders - CHRISTIAN AGUILAR MD Procedure Category Date Status Time Precautions: MARY 07/02/24 In Process Neutropenic 11:51 Ampicillin & PHA 07/02/24 In Process Sulbactam Sodium 12:00 Vancomycin Per PHA 07/02/24 In Process Pharmacy 12:00 Apply Barrier Cream MARY 07/02/24 In Process 14:00 Vancomycin 1gm/250ml PHA 07/03/24 In Process Kit 06:00 Vancomycin,Trough LAB 07/04/24 Verified 05:00 Vancomycin Per [facility] 07/04/24 In Process Pharmacy Protoc 05:00 Basic Metabolic Panel LAB 07/04/24 Verified 05:00 Date of Service: Jul 03, 2024 Billing Provider: CHRISTIAN AGUILAR MD Common Visit Codes: [id number] INP/OBS CARE(HIGH) CHRISTIAN AGUILAR MD Jul 03, 2024 11:53
[2024-07-03] MEDS: DIGOXIN (250MCG/ML) 2 ML AMPULE IV ONE ×2 (13:07→19:00)
[2024-07-03] MEDS ORDERED: dilTIAZem 25 MG/5 ML VIAL IV ONE (16:30)
--- NOTE | 2024-07-03 17:31 | DVHPN2 ---
Progress Note Date Seen: Jul 03, 2024 Resident Creating Document: EVENS BRITT RESIDENT Medical Necessity Reason Pt with a Central, PICC or Fol: No Subjective Review of Systems Patient was seen and examined at bedside, she states feeling well. Patient's blood pressure is around 110/70, patient is still in atrial flutter, around 130s 140s, amiodarone drip was restarted, we will also provide a dose of digoxin 500 mcg IV once and we will repeat in 4 hours. Diltiazem IV 10 mg was also given Objective vital signs Vital Sign Date Time Temp Pulse Resp B/P (MAP) Pulse Ox O2 Delivery O2 Flow Rate FiO2 07/03/24 16:24 97.2 116 19 111/60 (77) 100 97.2 07/03/24 08:00 Nasal Cannula* 3 32 Total Intake and Output 07/02/24 07/02/24 07/03/24 15:00 23:00 07:00 Intake Total 300 ml 750 ml 600 ml Output Total 250 ml Balance 300 ml 500 ml 600 ml medications Current Medications Medications Dose Ordered Sig/[place] Route Start Time Stop Time Status Last Admin Dose Admin Fluoxetine HCl 20 mg DAILY PO 06/30/24 10:00 07/03/24 09:26 20 MG Gabapentin 100 mg DAILY PO 06/30/24 10:00 07/03/24 09:26 100 MG Aspirin 81 mg DAILY PO 06/30/24 10:00 07/02/24 08:49 81 MG Alprazolam 0.5 mg Q8HPRN PRN PO 06/29/24 14:45 06/30/24 22:06 0.5 MG Sodium Chloride 1,000 ml @ 120 mls/hr Q8H20M IV 06/29/24 14:45 07/03/24 03:50 120 MLS/HR Acetaminophen/ Hydrocodone Bitart 1 tab Q4HP PRN PO 06/29/24 14:45 07/03/24 12:08 1 TAB Ondansetron HCl 4 mg Q4HP PRN IV 06/29/24 14:45 Docusate Sodium 100 mg BIDPRN PRN PO 06/29/24 14:45 Acetaminophen 650 mg Q6HP PRN PO 06/29/24 14:45 Morphine Sulfate 2 mg Q30M PRN IV 06/29/24 16:30 Nitroglycerin 0.4 mg Q5MINP PRN SL 06/29/24 16:30 Enoxaparin Sodium 60 mg Q12HR SC 07/01/24 22:00 Hold Doxycycline Hyclate 100 ml @ 50 mls/hr Q12H IV 07/02/24 10:30 07/03/24 09:26 50 MLS/HR Ampicillin Sodium/ Sulbactam Sodium 3 gm/Sodium Chloride 100 ml @ 100 mls/hr Q6H IV 07/02/24 12:00 07/03/24 12:09 100 MLS/HR Vancomycin HCl 0 ml @ 0 mls/hr UD IV 07/02/24 12:00 Vancomycin HCl 250 ml @ 250 mls/hr Q12H IV 07/03/24 06:00 07/03/24 16:40 250 MLS/HR Examination General: Awake, alert, comfortable appearing, in no acute distress, HEENT: Head is normocephalic and atraumatic. Pupils are equal, round, and reactive to light. Extraocular muscles are intact. No nasal discharge. Neck: Supple with no cervical lymphadenopathy No meningismus. No goiter. Heart: Normal rate, S1 and S2 Lungs: Scattered crackles most prominent in the left side Abdomen: No external sign of injury. Bowel sounds are present. Abdomen is soft, nontender. No rebound, no guarding, no rigidity. There are no palpable masses. There is no flank pain on exam. Extremities: Strong peripheral pulses. There is no clubbing, no cyanosis, and no edema. Skin: Multiple skin excoriations throughout the body laboratory and microbiology Laboratory Tests 07/03/24 05:32 Test 07/03/24 05:32 Range/Units Serum Glucose 93 74-106 mg/dL Labs and/or images reviewed: Labs reviewed by me, Image(s) reviewed by me Problem List/Assessment/Plan Problem List/Assessment/Plan NSTEMI likely type 2 related to underlying infection Atrial flutter, likely related to underlying infection Aortic insufficiency, moderate Metabolic encephalopathy due to pneumonia Sepsis Hyponatremia History of lung cancer Anxiety and depression Plan/Recommendation echocardiogram, it demonstrates moderate aortic insufficiency, EF 65% [id number]: 2 points. Therapeutic lovenox, held given thrombocytopenia Discontinue amiodarone Provided digoxin 500 mcg IV, Cardizem 10 mg IV once, we will give a 2nd dose of digoxin 500 mcg IV, and start her on digoxin 125 mcg p.o. daily Case was discussed with Dr. Lock Plan discussed with: Patient, Other (RN) My Orders My Orders Orders - EVENS BRITT Procedure Category Date Status Time Diltiazem Injection PHA 07/03/24 In Process (Cardizem Injection) 17:30 EVENS BRITT RESIDENT Jul 03, 2024 17:31
[2024-07-03] MEDS: dilTIAZem 25 MG/5 ML VIAL IV ONE (18:36)
[2024-07-04] VITALS (8 sets, daily range): BP systolic 116–137; BP diastolic 61–65; PULSE 61–137; RESP 16–18; TEMP 97.2–98.2; O2SAT 91–99
[2024-07-04 05:46] LABS: Hematocrit 33.9 % (36.0-46.0); Hemoglobin 11.2 g/dL (12.2-16.2); Mean Corpuscular Hemoglobin 29.5 pg (28.0-32.0); Mean Corpuscular Hgb Conc. 33.1 g/dL (32.0-36.0); Red Cell Distribution Width 17.4 % (11.8-14.3)
[2024-07-04 05:57] LABS: Anion Gap 7 (5-15); Aspartate Aminotransferase 17 U/L (13-40); BUN/Creatinine Ratio 10.7 (10.0-20.0); Calcium 8.7 mg/dL (8.7-10.4); Carbon Dioxide 27 mmol/L (20-31); Chloride 105 mmol/L (98-107); Glucose 89 mg/dL (74-106); Magnesium 1.9 mg/dL (1.6-2.6); Potassium 3.9 mmol/L (3.5-5.1); Sodium 139 mmol/L (136-145)
[2024-07-04 05:58] LABS: Bilirubin, Total 0.4 mg/dL (0.2-1.0)
[2024-07-04 06:01] LABS: White Blood Cell 1.7 10^3/uL (4.4-10.8)
[2024-07-04 06:02] LABS: Platelet Count (auto) 15 10^3/uL (140-450)
[2024-07-04 06:04] LABS: Band Neutrophils % (manual) 0; Basophils % (manual) 0 (0.0-2.0); Blast Cells 0; Metamyelocytes % 0; Myelocytes % 0; Promyelocytes % 0; Reactive Lymphocytes 0
[2024-07-04 06:07] LABS: Alanine Aminotransferase < 9 U/L (7-40); Albumin 2.9 g/dL (3.2-4.8); Alkaline Phosphatase 143 U/L (46-116); Blood Urea Nitrogen 6 mg/dL (9-23); Total Protein 5.7 g/dL (5.7-8.2)
[2024-07-04 06:28] LABS: Eosinophils % (manual) 6 (0-7); Lymphocytes % (manual) 11 (10.0-50.0); Monocytes % (manual) 2 (0-12); Platelet Estimate Decreased
[2024-07-04] MEDS: DIGOXIN 0.125 MG TAB PO SCH (11:15)
[2024-07-04] MEDS: MAGIC MOUTHWASH 55 ML SUSP MT SCH (14:00)
--- NOTE | 2024-07-04 14:03 | DVHPN2 ---
Subjective The patient is seen and examined at bedside. Still complain of shortness for breath. The patient's sleep a lot today. Reviewed: Care Plan, H&P, Labs, Medications, Previous Orders, Radiology Changes from previous H/P or p: No Changes Eyes: No Pain, No Vision change, No Conjunctivae inflammation, No Eyelid inflammation, No Other, No Redness ENT: No Ear pain, No Ear discharge, No Nose pain, No Nose discharge, No Nose congestion, No Mouth pain, No Mouth swelling, No Throat pain, No Throat swelling, No Other Cardiovascular: No Chest Pain, No Palpitations, No Orthopnea, No Paroxysmal Noc. Dyspnea, No Edema, No Lt Headedness, No Other Respiratory: No Cough, No Dry, No Shortness of breath, No SOB with excertion, No Wheezing, No Hemoptysis, No Pleuritic Pain, No Sputum, No Other Gastrointestinal: No Nausea, No Vomiting, No Abdominal Pain, No Diarrhea, No Constipation, No Melena, No Hematochezia, No Other Genitourinary: No Dysuria, No Frequency, No Incontinence, No Hematuria, No Retention, No Other Musculoskeletal: other (Left lower extremity redness/swelling); No neck pain, No shoulder pain, No arm pain, No back pain, No hand pain, No leg pain, No foot pain Skin: No Rash, No Lesions, No Jaundice, No Bruising, No Other Objective Vitals Vital Signs Date Time Temp Pulse Resp B/P (MAP) Pulse Ox O2 Delivery O2 Flow Rate FiO2 07/04/24 13:00 98.2 91 18 135/63 (87) 98 98.2 07/04/24 08:00 Nasal Cannula* 3 32 Intake/Output Intake and Output 07/04/24 07:00 Intake Total 1050 ml Balance 1050 ml Intake Oral 300 ml IV Total 750 ml # Voids 9 # Bowel Movements 3 General Appearance: Alert, Cooperative Lungs: Clear to auscultation, Normal air movement Cardiovascular: Regular rate, Normal S1 Abdomen: Normal bowel sounds, Soft, No tenderness Extremities: No edema Medications Current Medications Medications Dose Ordered Sig/[place] Route Start Time Stop Time Status Last Admin Dose Admin Fluoxetine HCl 20 mg DAILY PO 06/30/24 10:00 07/04/24 11:17 20 MG Gabapentin 100 mg DAILY PO 06/30/24 10:00 07/04/24 11:14 100 MG Aspirin 81 mg DAILY PO 06/30/24 10:00 07/02/24 08:49 81 MG Alprazolam 0.5 mg Q8HPRN PRN PO 06/29/24 14:45 06/30/24 22:06 0.5 MG Acetaminophen/ Hydrocodone Bitart 1 tab Q4HP PRN PO 06/29/24 14:45 07/04/24 05:47 1 TAB Ondansetron HCl 4 mg Q4HP PRN IV 06/29/24 14:45 Docusate Sodium 100 mg BIDPRN PRN PO 06/29/24 14:45 Acetaminophen 650 mg Q6HP PRN PO 06/29/24 14:45 Morphine Sulfate 2 mg Q30M PRN IV 06/29/24 16:30 Nitroglycerin 0.4 mg Q5MINP PRN SL 06/29/24 16:30 Enoxaparin Sodium 60 mg Q12HR SC 07/01/24 22:00 Hold Doxycycline Hyclate 100 ml @ 50 mls/hr Q12H IV 07/02/24 10:30 07/04/24 11:14 50 MLS/HR Ampicillin Sodium/ Sulbactam Sodium 3 gm/Sodium Chloride 100 ml @ 100 mls/hr Q6H IV 07/02/24 12:00 07/04/24 05:31 100 MLS/HR Vancomycin HCl 0 ml @ 0 mls/hr UD IV 07/02/24 12:00 Vancomycin HCl 250 ml @ 250 mls/hr Q12H IV 07/03/24 06:00 07/04/24 06:00 250 MLS/HR Digoxin 0.125 mg DAILY PO 07/04/24 10:00 07/04/24 11:15 0.125 MG Laboratory Results Laboratory Tests 07/04/24 05:02 Chemistry Test 07/04/24 05:02 Albumin 2.9 g/dL (3.2-4.8) L Calcium Level 8.7 mg/dL (8.7-10.4) Magnesium Level 1.9 mg/dL (1.6-2.6) Total Protein 5.7 g/dL (5.7-8.2) LFT Test 07/04/24 05:02 Alanine Aminotransferase (ALT) < 9 U/L (7-40) Alkaline Phosphatase 143 U/L (46-116) H Aspartate Amino Transferase (AST) 17 U/L (13-40) Total Bilirubin 0.4 mg/dL (0.2-1.0) Urinalysis Test 06/29/24 10:13 Urine Color Yellow (Yellow) Urine Clarity Clear (Clear) Urine pH 7.0 (5.0-9.0) Urine Specific [place] 1.014 (1.001-1.035) Urine Protein Trace (Negative) H Urine Ketones Negative (Negative) Urine Blood 1+ /uL (Negative) H Urine Nitrite Negative (Negative) Urine Bilirubin Negative (Negative) Urine Urobilinogen Normal mg/dL (Negative) Urine Leukocyte Esterase Negative /uL (Negative) Urine RBC 2 /hpf (0 - 4) Urine Microscopic WBC 1 /HPF (0-5) Urine Squamous Epithelial Cells Few /hpf (<5) Urine Bacteria None seen /hpf (None Seen) Urine Glucose Normal mg/dL (Normal) Labs and/or images reviewed: Labs reviewed by me Assessment/Plan Assessment/Plan Acute metabolic encephalopathy due to pneumonia and hyponatremia Hyponatremia Left upper lobe pneumonia Sepsis due to pneumonia Elevated troponin Anxiety and depression Arthritis Neutropenia due to sepsis Thrombocytopenia due to sepsis Atrial fibrillation with rapid ventricular response Plan Continuing current management. Continuing with amiodarone. Continuing with IV antibiotic Unasyn, doxycycline and vancomycin. We will monitor the platelet Appreciate geographic information system surveyor's input Continuing neutropenic precautions Continuing to monitor thrombocytopenia Replace electrolytes as needed This medical document was created using an electronic medical record system with [email or web address] direct computerized dictation system. Although this document has been carefully reviewed, there may still be some phonetic and typographical errors. These areas are purely typographical due to imperfections of the software programs, and do not reflect any compromise in the patient's medical care. Plan discussed with: Patient Date of Service: Jul 04, 2024 Billing Provider: CAS HIGGINS MD Common Visit Codes: [id number] INP/OBS CARE(HIGH) CAS HIGGINS MD Jul 04, 2024 14:03
[2024-07-05] VITALS (10 sets, daily range): BP systolic 125–154; BP diastolic 61–70; PULSE 88–102; RESP 16–20; TEMP 97.6–98.4; O2SAT 92–98
[2024-07-05 07:31] LABS: Hematocrit 33.3 % (36.0-46.0); Mean Corpuscular Hemoglobin 29.4 pg (28.0-32.0); Mean Corpuscular Volume 89.2 fL (80.0-100.0); Red Blood Cells 3.74 10^6/uL (4.0-5.20); Red Cell Distribution Width 17.2 % (11.8-14.3)
[2024-07-05 07:42] LABS: White Blood Cell 1.1 10^3/uL (4.4-10.8)
[2024-07-05 07:43] LABS: Band Neutrophils % (manual) 0; Basophils % (manual) 0 (0.0-2.0); Blast Cells 0; Metamyelocytes % 0; Myelocytes % 0; Promyelocytes % 0; Reactive Lymphocytes 0
[2024-07-05 10:02] LABS: Platelet Count (auto) 8 10^3/uL (140-450)
[2024-07-05 10:03] LABS: Eosinophils % (manual) 13 (0-7); Lymphocytes % (manual) 16 (10.0-50.0); Monocytes % (manual) 3 (0-12); Platelet Estimate Markedly Decreased
--- NOTE | 2024-07-05 22:24 | DVHPN2 ---
Subjective The patient is seen and examined at bedside. No complaint today but very sleepy and tired. Remained confused Changes from previous H/P or p: No Changes Eyes: No Pain, No Vision change, No Conjunctivae inflammation, No Eyelid inflammation, No Other, No Redness ENT: No Ear pain, No Ear discharge, No Nose pain, No Nose discharge, No Nose congestion, No Mouth pain, No Mouth swelling, No Throat pain, No Throat swelling, No Other Cardiovascular: No Chest Pain, No Palpitations, No Orthopnea, No Paroxysmal Noc. Dyspnea, No Edema, No Lt Headedness, No Other Respiratory: No Cough, No Dry, No Shortness of breath, No SOB with excertion, No Wheezing, No Hemoptysis, No Pleuritic Pain, No Sputum, No Other Gastrointestinal: No Nausea, No Vomiting, No Abdominal Pain, No Diarrhea, No Constipation, No Melena, No Hematochezia, No Other Genitourinary: No Dysuria, No Frequency, No Incontinence, No Hematuria, No Retention, No Other Musculoskeletal: other (Left lower extremity redness/swelling); No neck pain, No shoulder pain, No arm pain, No back pain, No hand pain, No leg pain, No foot pain Skin: No Rash, No Lesions, No Jaundice, No Bruising, No Other Objective Vitals Vital Signs Date Time Temp Pulse Resp B/P (MAP) Pulse Ox O2 Delivery O2 Flow Rate FiO2 07/05/24 21:00 98.4 93 18 125/68 (87) 94 98.4 07/05/24 08:00 Nasal Cannula* 2 28 Intake/Output Intake and Output 07/05/24 07:00 Intake Total 1340 ml Balance 1340 ml Intake Oral 1240 ml IV Total 100 ml # Voids 6 # Bowel Movements 3 General Appearance: Alert, Cooperative Lungs: Clear to auscultation, Normal air movement Cardiovascular: Regular rate, Normal S1 Abdomen: Normal bowel sounds, Soft, No tenderness Extremities: No edema Medications Current Medications Medications Dose Ordered Sig/[place] Route Start Time Stop Time Status Last Admin Dose Admin Fluoxetine HCl 20 mg DAILY PO 06/30/24 10:00 07/05/24 09:31 20 MG Gabapentin 100 mg DAILY PO 06/30/24 10:00 07/05/24 09:30 100 MG Aspirin 81 mg DAILY PO 06/30/24 10:00 07/02/24 08:49 81 MG Alprazolam 0.5 mg Q8HPRN PRN PO 06/29/24 14:45 06/30/24 22:06 0.5 MG Acetaminophen/ Hydrocodone Bitart 1 tab Q4HP PRN PO 06/29/24 14:45 07/05/24 18:47 1 TAB Ondansetron HCl 4 mg Q4HP PRN IV 06/29/24 14:45 Docusate Sodium 100 mg BIDPRN PRN PO 06/29/24 14:45 Acetaminophen 650 mg Q6HP PRN PO 06/29/24 14:45 Morphine Sulfate 2 mg Q30M PRN IV 06/29/24 16:30 Nitroglycerin 0.4 mg Q5MINP PRN SL 06/29/24 16:30 Enoxaparin Sodium 60 mg Q12HR SC 07/01/24 22:00 Hold Doxycycline Hyclate 100 ml @ 50 mls/hr Q12H IV 07/02/24 10:30 07/05/24 21:31 50 MLS/HR Ampicillin Sodium/ Sulbactam Sodium 3 gm/Sodium Chloride 100 ml @ 100 mls/hr Q6H IV 07/02/24 12:00 07/05/24 20:27 100 MLS/HR Vancomycin HCl 0 ml @ 0 mls/hr UD IV 07/02/24 12:00 Vancomycin HCl 250 ml @ 250 mls/hr Q12H IV 07/03/24 06:00 07/05/24 18:00 250 MLS/HR Digoxin 0.125 mg DAILY PO 07/04/24 10:00 07/05/24 09:32 0.125 MG Al Hydrox/Mg Hydrox/Simethicone 10 ml Q8HP MT 07/04/24 14:00 07/05/24 21:31 10 ML Laboratory Results Laboratory Tests 07/04/24 05:02 07/05/24 05:41 Urinalysis Test 06/29/24 10:13 Urine Color Yellow (Yellow) Urine Clarity Clear (Clear) Urine pH 7.0 (5.0-9.0) Urine Specific [place] 1.014 (1.001-1.035) Urine Protein Trace (Negative) H Urine Ketones Negative (Negative) Urine Blood 1+ /uL (Negative) H Urine Nitrite Negative (Negative) Urine Bilirubin Negative (Negative) Urine Urobilinogen Normal mg/dL (Negative) Urine Leukocyte Esterase Negative /uL (Negative) Urine RBC 2 /hpf (0 - 4) Urine Microscopic WBC 1 /HPF (0-5) Urine Squamous Epithelial Cells Few /hpf (<5) Urine Bacteria None seen /hpf (None Seen) Urine Glucose Normal mg/dL (Normal) Labs and/or images reviewed: Labs reviewed by me Assessment/Plan Assessment/Plan Acute metabolic encephalopathy due to pneumonia and hyponatremia Hyponatremia Left upper lobe pneumonia Sepsis due to pneumonia Elevated troponin Anxiety and depression Arthritis Neutropenia due to sepsis Thrombocytopenia due to sepsis Atrial fibrillation with rapid ventricular response Plan Continuing current management. Continuing with amiodarone. Continuing with IV antibiotic Unasyn, doxycycline and vancomycin. We will monitor the platelet Appreciate actuarial science professor's input Continuing neutropenic precautions Today the platelet is 8. I am going to type and cross and transfuse 1 unit platelet. Continuing to monitor thrombocytopenia This medical document was created using an electronic medical record system with [employer] direct computerized dictation system. Although this document has been carefully reviewed, there may still be some phonetic and typographical errors. These areas are purely typographical due to imperfections of the software programs, and do not reflect any compromise in the patient's medical care. Plan discussed with: Patient My Orders Orders - CAS HIGGINS MD Procedure Category Date Status Time Administer Blood MARY 07/05/24 In Process Products 10:28 Date of Service: Jul 05, 2024 Billing Provider: CAS HIGGINS MD Common Visit Codes: [id number] INP/OBS CARE(HIGH) CAS HIGGINS MD Jul 05, 2024 22:24
[2024-07-06] VITALS (15 sets, daily range): BP systolic 106–139; BP diastolic 54–70; PULSE 81–100; RESP 16–22; TEMP 97.6–98.2; O2SAT 92–100
[2024-07-06] MEDS: ALBUTEROL SULF 2.5 MG/0.5ML(0.5%) NEB SOLN NEB PRN (02:33)
[2024-07-06 06:35] LABS: Hemoglobin 11.1 g/dL (12.2-16.2)
[2024-07-06 06:37] LABS: Hematocrit 33.8 % (36.0-46.0); Mean Corpuscular Hgb Conc. 32.9 g/dL (32.0-36.0); Red Blood Cells 3.84 10^6/uL (4.0-5.20); White Blood Cell 3.8 10^3/uL (4.4-10.8)
[2024-07-06 07:44] LABS: Band Neutrophils % (manual) 0; Basophils % (manual) 0 (0.0-2.0); Blast Cells 0; Metamyelocytes % 0; Myelocytes % 0; Promyelocytes % 0; Reactive Lymphocytes 0
[2024-07-06 09:06] LABS: Eosinophils % (manual) 9 (0-7); Lymphocytes % (manual) 26 (10.0-50.0); Monocytes % (manual) 3 (0-12); Platelet Estimate Markedly Decreased
[2024-07-06 09:11] LABS: Platelet Count (auto) 13 10^3/uL (140-450)
[2024-07-06] MEDS: MIDAZOLAM HCL 2MG/2ML 2ml VIAL (1mg/ml) IV ONE (11:45)
[2024-07-06] MEDS: fentaNYL CITRATE 100 MCG/2 ML VL IV ONE (11:45)
[2024-07-06] MEDS: LIDOCAINE 2%HCL (LOCAL ANESTH.) INJ 10ml MDV ONE (11:58)
--- NOTE | 2024-07-06 12:27 | DVHPN2 ---
Subjective Seen and examined at bedside, patient will benefit from a bone marrow biopsy and CT Chest. Changes from previous H/P or p: No Changes Eyes: No Pain, No Vision change, No Conjunctivae inflammation, No Eyelid inflammation, No Other, No Redness ENT: No Ear pain, No Ear discharge, No Nose pain, No Nose discharge, No Nose congestion, No Mouth pain, No Mouth swelling, No Throat pain, No Throat swelling, No Other Cardiovascular: No Chest Pain, No Palpitations, No Orthopnea, No Paroxysmal Noc. Dyspnea, No Edema, No Lt Headedness, No Other Respiratory: No Cough, No Dry, No Shortness of breath, No SOB with excertion, No Wheezing, No Hemoptysis, No Pleuritic Pain, No Sputum, No Other Gastrointestinal: No Nausea, No Vomiting, No Abdominal Pain, No Diarrhea, No Constipation, No Melena, No Hematochezia, No Other Genitourinary: No Dysuria, No Frequency, No Incontinence, No Hematuria, No Retention, No Other Musculoskeletal: other (Left lower extremity redness/swelling); No neck pain, No shoulder pain, No arm pain, No back pain, No hand pain, No leg pain, No foot pain Skin: No Rash, No Lesions, No Jaundice, No Bruising, No Other Objective Vitals Vital Signs Date Time Temp Pulse Resp B/P (MAP) Pulse Ox O2 Delivery O2 Flow Rate FiO2 07/06/24 09:00 98.2 97 18 132/67 (88) 97 98.2 07/06/24 08:00 Nasal Cannula* 2 28 Intake/Output Intake and Output 07/06/24 07:00 Intake Total 2116 ml Balance 2116 ml Intake Oral 920 ml IV Total 700 ml Blood Product 248 ml Other 248 ml # Voids 7 # Bowel Movements 2 General Appearance: Alert, Oriented X3, Cooperative Lungs: Normal air movement, Other (Few Creps) Cardiovascular: Regular rate, Normal S1 Abdomen: Normal bowel sounds, Soft, No tenderness Extremities: No edema Medications Current Medications Medications Dose Ordered Sig/[place] Route Start Time Stop Time Status Last Admin Dose Admin Fluoxetine HCl 20 mg DAILY PO 06/30/24 10:00 07/06/24 08:59 20 MG Gabapentin 100 mg DAILY PO 06/30/24 10:00 07/06/24 08:59 100 MG Aspirin 81 mg DAILY PO 06/30/24 10:00 07/02/24 08:49 81 MG Alprazolam 0.5 mg Q8HPRN PRN PO 06/29/24 14:45 06/30/24 22:06 0.5 MG Acetaminophen/ Hydrocodone Bitart 1 tab Q4HP PRN PO 06/29/24 14:45 07/06/24 11:10 1 TAB Ondansetron HCl 4 mg Q4HP PRN IV 06/29/24 14:45 Docusate Sodium 100 mg BIDPRN PRN PO 06/29/24 14:45 Acetaminophen 650 mg Q6HP PRN PO 06/29/24 14:45 Morphine Sulfate 2 mg Q30M PRN IV 06/29/24 16:30 Nitroglycerin 0.4 mg Q5MINP PRN SL 06/29/24 16:30 Enoxaparin Sodium 60 mg Q12HR SC 07/01/24 22:00 Hold Doxycycline Hyclate 100 ml @ 50 mls/hr Q12H IV 07/02/24 10:30 07/06/24 08:59 50 MLS/HR Ampicillin Sodium/ Sulbactam Sodium 3 gm/Sodium Chloride 100 ml @ 100 mls/hr Q6H IV 07/02/24 12:00 07/06/24 06:53 100 MLS/HR Vancomycin HCl 0 ml @ 0 mls/hr UD IV 07/02/24 12:00 Digoxin 0.125 mg DAILY PO 07/04/24 10:00 07/06/24 08:59 0.125 MG Al Hydrox/Mg Hydrox/Simethicone 10 ml Q8HP MT 07/04/24 14:00 07/06/24 06:08 10 ML Albuterol 2.5 mg Q6HPRN PRN NEB 07/06/24 02:30 07/06/24 02:33 2.5 MG Laboratory Results Laboratory Tests 07/04/24 05:02 07/06/24 05:56 Coagulation Test 07/06/24 11:55 Prothrombin Time Pending Prothrombin Time INR Pending Activated Partial Thromboplast Time Pending Urinalysis Test 06/29/24 10:13 Urine Color Yellow (Yellow) Urine Clarity Clear (Clear) Urine pH 7.0 (5.0-9.0) Urine Specific [place] 1.014 (1.001-1.035) Urine Protein Trace (Negative) H Urine Ketones Negative (Negative) Urine Blood 1+ /uL (Negative) H Urine Nitrite Negative (Negative) Urine Bilirubin Negative (Negative) Urine Urobilinogen Normal mg/dL (Negative) Urine Leukocyte Esterase Negative /uL (Negative) Urine RBC 2 /hpf (0 - 4) Urine Microscopic WBC 1 /HPF (0-5) Urine Squamous Epithelial Cells Few /hpf (<5) Urine Bacteria None seen /hpf (None Seen) Urine Glucose Normal mg/dL (Normal) Assessment/Plan Assessment/Plan # Possible Sepsis - Cont Abx, Get Sputum Cultures, CT Chest # Pancytopenia - Bone marrow biopsy # Possible Aspiration PNA - Abx - Sputum Cultures # H/o Lung Cancer # Moderate-Severe protein malnutrition - Dietary Cx Critical care time 45 mins Plan discussed with: Patient, Spouse My Orders Orders - RAJAT ENCARNACION MD Procedure Category Date Status Time Chest Without Contrast CT 07/06/24 Logged 11:19 Dietary Cons For NOURISH 07/06/24 Transmitted Malnutrition 11:19 Reticulocyte Count LAB 07/06/24 In Process 11:19 Complete Blood Count LAB 07/07/24 Verified 04:00 Comprehensive LAB 07/07/24 Verified Metabolic Panel 04:00 * Radiologist Consult CONS 07/06/24 Transmitted 11:30 Communication Order ORDERS 07/06/24 Transmitted 11:30 Date of Service: Jul 06, 2024 Billing Provider: RAJAT ENCARNACION MD Common Visit Codes: [id number] CARE 30-74 MIN RAJAT ENCARNACION MD Jul 06, 2024 12:27
[2024-07-06 12:45] LABS: INR 1.08 (0.9-1.15); Partial Thromboplastin Time 36.3 SEC (24.5-34.5); Prothrombin Time 11.4 sec (9.3-11.8)
--- NOTE | 2024-07-06 15:01 | DVH ---
EXAM: CT CHEST WITHOUT CONTRAST HISTORY: PNA COMPARISON: None TECHNIQUE: Axial images were obtained and reformatted in coronal and sagittal planes. All CT scans a t [facility] are performed using dose modulation techniques as appropriate to a performed exam including the following: Automated exposure control was utilized; adjustment of the MA and/or KV according to patient size; and use of iterative reconstruction technique. CT Dose: CTDI volume is 14.83 mGy. Dose-length product is 591.62 mGy*cm FINDINGS: Lower neck: Unremarkable. Cardiomediastinal: The heart is normal in size. Aorta is normal in caliber with scattered calcified plaques. No pericardial effusion.. Lungs: Dense consolidation in the left upper lobe with air bronchograms. Moderate patchy opacities in the bilateral lungs. Small bilateral pleural effusions. No pneumothorax. Bones and Soft Tissues: Severe compression deformity of T4 with complete loss of height anteriorly wi thout retropulsion. Mild depression and irregularity of the inferior endplate of T5. Moderate anteri or compression deformity of T6 with approximately 40% loss of height anteriorly without retropulsion. Mild compression deformity of T7 with approximately 20% loss of height centrally and anteriorly wit hout retropulsion. Multilevel degenerative disc disease of the thoracic spine noted. Moderate body w all edema. Upper Abdomen: No acute abnormality. Other: None. IMPRESSION: 1. Moderate bilateral multifocal pneumonia and a small bilateral pleural effusions. 2. Age-indeterminate compression deformities of several upper thoracic vertebrae without retropulsion .
--- NOTE | 2024-07-06 15:22 | DVH ---
CT PELVIS WO CONTRAST, HISTORY: BONE MARROW BX COMPARISON: None PROCEDURE: Informed consent and time-out was performed before the procedure. Conscious sedation was p erformed by the interventional radiology nurse. The right posterior pelvic bone was marked, sterilize d, draped, and locally anesthetized using approximately 9 ml of 1% lidocaine. Axial CT images were us ed for localization. A 11 gauge [employer] Bone Biopsy kit was used to take 13 mL aspirate and 1 core. The biopsy needle was then removed. No immediate complications noted. FINDINGS: Axial CT images demonstrates biopsy needle within the right posterior pelvic bone. IMPRESSION: Successful CT-guided biopsy of the right posterior pelvic bone.
--- NOTE | 2024-07-06 15:22 | DVH ---
CT PELVIS WO CONTRAST, HISTORY: BONE MARROW BX COMPARISON: None PROCEDURE: Informed consent and time-out was performed before the procedure. Conscious sedation was p erformed by the interventional radiology nurse. The right posterior pelvic bone was marked, sterilize d, draped, and locally anesthetized using approximately 9 ml of 1% lidocaine. Axial CT images were us ed for localization. A 11 gauge [employer] Bone Biopsy kit was used to take 13 mL aspirate and 1 core. The biopsy needle was then removed. No immediate complications noted. FINDINGS: Axial CT images demonstrates biopsy needle within the right posterior pelvic bone. IMPRESSION: Successful CT-guided biopsy of the right posterior pelvic bone.
[2024-07-06] MEDS: PIPERACILLIN-TAZOB 3.375GM 100 ML IV SCH (15:59)
[2024-07-07] VITALS (15 sets, daily range): BP systolic 110–123; BP diastolic 53–80; PULSE 85–100; RESP 12–20; TEMP 97.6–98.6; O2SAT 93–100
[2024-07-07 07:12] LABS: Anion Gap 7 (5-15); Aspartate Aminotransferase 19 U/L (13-40); BUN/Creatinine Ratio 15.1 (10.0-20.0); Calcium 8.7 mg/dL (8.7-10.4); Carbon Dioxide 29 mmol/L (20-31); Chloride 102 mmol/L (98-107); Glucose 97 mg/dL (74-106); Sodium 138 mmol/L (136-145)
[2024-07-07 07:13] LABS: Bilirubin, Total 0.7 mg/dL (0.2-1.0)
[2024-07-07 07:20] LABS: Alanine Aminotransferase < 9 U/L (7-40); Albumin 2.6 g/dL (3.2-4.8); Alkaline Phosphatase 149 U/L (46-116); Blood Urea Nitrogen 8 mg/dL (9-23); Potassium 3.4 mmol/L (3.5-5.1); Total Protein 5.2 g/dL (5.7-8.2)
[2024-07-07 08:07] LABS: Basophils # (auto) 0 10 ^3/uL (0-0.2); Basophils % (auto) 3.7 % (0.0-2.0); Eosinophils # (auto) 0.1 10 ^3/uL (0-0.8); Eosinophils % (auto) 21.6 % (0.0-7.0); Hematocrit 29.5 % (36.0-46.0); Hemoglobin 9.6 g/dL (12.2-16.2); Lymphocytes # (auto) 0.3 10 ^3/uL (0.4-5.4); Lymphocytes % (auto) 38.8 % (10.0-50.0); Mean Corpuscular Hemoglobin 29.1 pg (28.0-32.0); Mean Corpuscular Hgb Conc. 32.4 g/dL (32.0-36.0); Mean Corpuscular Volume 89.8 fL (80.0-100.0); Monocytes # (auto) 0 10 ^3/uL (0-1.3); Monocytes % (auto) 4.4 % (0.0-12.0); Neutrophils # (auto) 0.2 10 ^3/uL (1.6-8.6); Neutrophils % (auto) 31.5 % (37.0-80.0); Red Blood Cells 3.28 10^6/uL (4.0-5.20)
[2024-07-07 08:18] LABS: Platelet Count (auto) 7 10^3/uL (140-450); White Blood Cell 0.7 10^3/uL (4.4-10.8)
--- NOTE | 2024-07-07 08:47 | DVHINCON2 ---
Date of service: Jul 07, [address] Thuy Swain Reason for Consultation Pancytopenia with pneumonia and sepsis History of Present Illness 64 years old female with a history of smoking and still smoking half a pack of cigarettes a day. Gives a history of lung cancer diagnosed three years back and underwent chemoradiation therapy in 2021 at [facility] and states that she has been in remission. Otherwise the patient has been in good health The patient is admitted with altered level of consciousness with shortness of breath with the bruising and tendency to fall down I am consulted for pancytopenia today she has a white count of 0.7, hemoglobin 9.6 platelets are 7000 She has been transfused 1 unit of platelets Normal renal functions. Alkaline phosphatase 149. Total protein 5.2 albumin 2.6 LDH 264 PT INR 1.08 PTT Hepatitis-B surface antigen , hepatitis-C antibody and COVID and influenza is negative The patient had a bone marrow evaluation done yesterday and the report is pending. The patient does have a tendency to bruise. She has a dryness in the nose from the O2 and has some bleeding. No gum or urine or stool bleeding. Over the last couple of years she says she has lost 170 lb of weight with a history of lung cancer and the chemotherapy. no complaints of fevers or night sweats Bowel small fine and no urinary discomfort Past Medical History History of lung cancer History of smoking Needed a packed red cell transfusion in during History of C-sections Family History: Patient reports no known family medical history. Family History Unremarkable for malignancy or hematological disorders Social History Still smokes half a pack of cigarettes a day No alcohol or drugs Allergies: Coded Allergies: NO KNOWN ALLERGIES (Unverified , 06/29/24) Current Medications Current Medications Medications (Trade) Dose Ordered Sig/[place] Route PRN Reason Start Time Stop Time Status Last Admin Piperacillin Sod/ Tazobactam Sod 100 ml @ 25 mls/hr Q8HR IV 07/06/24 14:00 07/07/24 06:56 Vital Signs Vital Signs Date Time Temp Pulse Resp B/P (MAP) Pulse Ox O2 Delivery O2 Flow Rate FiO2 07/07/24 05:00 98.6 100 12 115/58 (77) 95 98.6 07/06/24 22:37 Nasal Cannula 3.0 07/06/24 22:37 32 Physical Exam Moderately built and nourished, in no acute distress, alert and oriented. O2 No jaundice Head and neck: Unremarkable for any masses or neck nodes. No conjunctival or mucosal hemorrhage Lungs: Clear Cardiovascular: S1-S2 heard well Abdomen: No organomegaly, tenderness or ascites. Bowel sounds are present. Extremities: No clubbing edema cyanosis or calf tenderness. Skin: Significant ecchymosis of the upper extremity Lymphadenopathy: None Neurological exam: No focal deficit Labs/Diagnostic Data Labs Test 07/07/24 06:26 07/06/24 11:55 07/06/24 05:56 07/04/24 05:02 Range/Units White Blood Count 0.7 #*L 4.4-10.8 10^3/uL Red Blood Count 3.28 L 4.0-5.20 10^6/uL Hemoglobin 9.6 L 12.2-16.2 g/dL Hematocrit 29.5 #L 36.0-46.0 % Mean Corpuscular Volume 89.8 80.0-100.0 fL Mean Corpuscular Hemoglobin 29.1 28.0-32.0 pg Mean Corpuscular Hemoglobin Concent 32.4 32.0-36.0 g/dL Red Cell Distribution Width 17.0 H 11.8-14.3 % Platelet Count 7 *L 140-450 10^3/uL Mean Platelet Volume 9.5 6.9-10.8 fL Neutrophils (%) (Auto) 31.5 L 37.0-80.0 % Lymphocytes (%) (Auto) 38.8 10.0-50.0 % Monocytes (%) (Auto) 4.4 0.0-12.0 % Eosinophils (%) (Auto) 21.6 H 0.0-7.0 % Basophils (%) (Auto) 3.7 H 0.0-2.0 % Neutrophils # (Auto) 0.2 L 1.6-8.6 10 ^3/uL Lymphocytes # (Auto) 0.3 L 0.4-5.4 10 ^3/uL Monocytes # (Auto) 0 0-1.3 10 ^3/uL Eosinophils # (Auto) 0.1 0-0.8 10 ^3/uL Basophils # (Auto) 0 0-0.2 10 ^3/uL Nucleated Red Blood Cells 3.0 % Sodium Level 138 136-145 mmol/L Potassium Level 3.4 L 3.5-5.1 mmol/L Chloride Level 102 98-107 mmol/L Carbon Dioxide Level 29 20-31 mmol/L Anion Gap 7 5-15 Blood Urea Nitrogen 8 L 9-23 mg/dL Creatinine 0.53 L 0.550-1.02 mg/dL Glomerular Filtration Rate Calc 103 >90 mL/min BUN/Creatinine Ratio 15.1 10.0-20.0 Serum Glucose 97 74-106 mg/dL Calcium Level 8.7 8.7-10.4 mg/dL Total Bilirubin 0.7 0.2-1.0 mg/dL Aspartate Amino Transferase (AST) 19 13-40 U/L Alanine Aminotransferase (ALT) < 9 7-40 U/L Alkaline Phosphatase 149 H 46-116 U/L Total Protein 5.2 L 5.7-8.2 g/dL Albumin 2.6 L 3.2-4.8 g/dL Prothrombin Time 11.4 9.3-11.8 sec Prothrombin Time INR 1.08 0.9-1.15 Activated Partial Thromboplast Time 36.3 H 24.5-34.5 SEC Random Vancomycin Level 14.2 H 5-10 ug/mL Differential Total Cells Counted 100.0 100 Neutrophils % (Manual) 62 37.0-80.0 Band Neutrophils % (Manual) 0 Lymphocytes % (Manual) 26 10.0-50.0 Monocytes % (Manual) 3 0-12 Eosinophils % (Manual) 9 H 0-7 Basophils % (Manual) 0 0.0-2.0 Metamyelocytes % (manual) 0 Myelocytes % (Manual) 0 Promyelocytes % (Manual) 0 Blast Cells % (Manual) 0 Reactive Lymphocytes 0 Clumped Platelets None Reticulocyte Count (auto) 0.59 0.5-1.5 % Lactate Dehydrogenase 264 H 120-246 U/L Vancomycin Level Trough 21.0 H 5-10 ug/mL Digoxin Level 0.82 0.8-2 ng/mL Magnesium Level 1.9 1.6-2.6 mg/dL Test 07/01/24 20:00 07/01/24 10:15 07/01/24 04:45 06/30/24 08:49 Range/Units Influenza Type A Antigen Negative Negative Influenza Type B Antigen Negative Negative SARS-CoV-2 Antigen (Rapid) Negative NEGATIVE B-Type Natriuretic Peptide 295.92 0-100 pg/mL Free Thyroxine (T4) Calculated 0.85 L 0.89-1.76 ng/dL Total Triiodothyronine (TT3) 0.80 0.60-1.81 ng/mL Triglycerides Level 77 < 150 mg/dL Cholesterol Level 101 < 200 mg/dL LDL Cholesterol 65 < 100 mg/dL HDL Cholesterol 28 L 40-59 mg/dL Thyroid Stimulating Hormone (TSH) 4.94 H 0.55-4.78 uIU/mL Hepatitis B Surface Antigen Negative Negative Hepatitis C Antibody Negative Negative Test 06/29/24 19:12 06/29/24 10:20 06/29/24 10:13 Range/Units Troponin I High Sensitivity 67 *H </=34 ng/L POC Glucose 80 70-106 mg/dl Urine Color Yellow Yellow Urine Clarity Clear Clear Urine pH 7.0 5.0-9.0 Urine Specific [place] 1.014 1.001-1.035 Urine Protein Trace H Negative Urine Ketones Negative Negative Urine Blood 1+ H Negative /uL Urine Nitrite Negative Negative Urine Bilirubin Negative Negative Urine Urobilinogen Normal Negative mg/dL Urine Leukocyte Esterase Negative Negative /uL Urine RBC 2 0 - 4 /hpf Urine Microscopic WBC 1 0-5 /HPF Urine Squamous Epithelial Cells Few <5 /hpf Urine Bacteria None seen None Seen /hpf Urine Glucose Normal Normal mg/dL Assessment 1. Pancytopenia with pneumonia and sepsis. Normal PT PTT. Status post [address] of the chest showed moderate bilateral multifocal pneumonia small bilateral pleural effusion. Age indeterminate compression deformities of several upper thoracic vertebrae without retropulsion No evidence of DIC. The blood smear showed no abnormal cells except thrombocytopenia and leukopenia 2. History of lung cancer status post chemoradiation therapy at [facility] 2021 and the patient states that she has been in remission Plan/Recommendation Continue the supportive care We will give her Neupogen Wait for the bone marrow report [place] [id number] Plan discussed with: Patient ESE MABRY MD Jul 07, 2024 08:47
[2024-07-07 11:11] LABS: Platelet Estimate Markedly Decreased
--- NOTE | 2024-07-07 14:09 | DVHPN2 ---
Subjective Seen and examined at bedside, s/p Bone Marrow Biopsy. Transfuse platelets. Reviewed: Care Plan, H&P, Labs, Medications, Previous Orders, Radiology Changes from previous H/P or p: No Changes Eyes: No Pain, No Vision change, No Conjunctivae inflammation, No Eyelid inflammation, No Other, No Redness ENT: No Ear pain, No Ear discharge, No Nose pain, No Nose discharge, No Nose congestion, No Mouth pain, No Mouth swelling, No Throat pain, No Throat swelling, No Other Cardiovascular: No Chest Pain, No Palpitations, No Orthopnea, No Paroxysmal Noc. Dyspnea, No Edema, No Lt Headedness, No Other Respiratory: No Cough, No Dry, No Shortness of breath, No SOB with excertion, No Wheezing, No Hemoptysis, No Pleuritic Pain, No Sputum, No Other Gastrointestinal: No Nausea, No Vomiting, No Abdominal Pain, No Diarrhea, No Constipation, No Melena, No Hematochezia, No Other Genitourinary: No Dysuria, No Frequency, No Incontinence, No Hematuria, No Retention, No Other Musculoskeletal: other (Left lower extremity redness/swelling); No neck pain, No shoulder pain, No arm pain, No back pain, No hand pain, No leg pain, No foot pain Skin: No Rash, No Lesions, No Jaundice, No Bruising, No Other Objective Vitals Vital Signs Date Time Temp Pulse Resp B/P (MAP) Pulse Ox O2 Delivery O2 Flow Rate FiO2 07/07/24 09:29 87 07/07/24 09:00 97.8 18 123/58 (79) 100 97.8 07/07/24 08:00 Nasal Cannula* 3 32 Intake/Output Intake and Output 07/07/24 06:59 Intake Total 1625 ml Output Total 500 ml Balance 1125 ml Intake Oral 1250 ml IV Total 375 ml Output Urine Total 500 ml # Voids 3 # Bowel Movements 1 General Appearance: Alert, Cooperative Lungs: Clear to auscultation, Normal air movement Cardiovascular: Regular rate, Normal S1 Abdomen: Normal bowel sounds, Soft, No tenderness Extremities: No edema Medications Current Medications Medications Dose Ordered Sig/[place] Route Start Time Stop Time Status Last Admin Dose Admin Fluoxetine HCl 20 mg DAILY PO 06/30/24 10:00 07/07/24 09:29 20 MG Gabapentin 100 mg DAILY PO 06/30/24 10:00 07/07/24 09:28 100 MG Aspirin 81 mg DAILY PO 06/30/24 10:00 07/02/24 08:49 81 MG Alprazolam 0.5 mg Q8HPRN PRN PO 06/29/24 14:45 07/06/24 21:03 0.5 MG Acetaminophen/ Hydrocodone Bitart 1 tab Q4HP PRN PO 06/29/24 14:45 07/07/24 09:46 1 TAB Ondansetron HCl 4 mg Q4HP PRN IV 06/29/24 14:45 Docusate Sodium 100 mg BIDPRN PRN PO 06/29/24 14:45 Acetaminophen 650 mg Q6HP PRN PO 06/29/24 14:45 Morphine Sulfate 2 mg Q30M PRN IV 06/29/24 16:30 Nitroglycerin 0.4 mg Q5MINP PRN SL 06/29/24 16:30 Doxycycline Hyclate 100 ml @ 50 mls/hr Q12H IV 07/02/24 10:30 07/07/24 09:31 50 MLS/HR Digoxin 0.125 mg DAILY PO 07/04/24 10:00 07/07/24 09:29 0.125 MG Al Hydrox/Mg Hydrox/Simethicone 10 ml Q8HP MT 07/04/24 14:00 07/06/24 06:08 10 ML Albuterol 2.5 mg Q6HPRN PRN NEB 07/06/24 02:30 07/06/24 22:37 2.5 MG Piperacillin Sod/ Tazobactam Sod 100 ml @ 25 mls/hr Q8HR IV 07/06/24 14:00 07/07/24 06:56 25 MLS/HR Tbo-Filgrastim 480 mcg DAILY SC 07/07/24 10:00 07/10/24 09:59 Laboratory Results Laboratory Tests 07/07/24 06:26 Chemistry Test 07/07/24 06:26 Albumin 2.6 g/dL (3.2-4.8) L Calcium Level 8.7 mg/dL (8.7-10.4) Total Protein 5.2 g/dL (5.7-8.2) L LFT Test 07/07/24 06:26 Alanine Aminotransferase (ALT) < 9 U/L (7-40) Alkaline Phosphatase 149 U/L (46-116) H Aspartate Amino Transferase (AST) 19 U/L (13-40) Total Bilirubin 0.7 mg/dL (0.2-1.0) Urinalysis Test 06/29/24 10:13 Urine Color Yellow (Yellow) Urine Clarity Clear (Clear) Urine pH 7.0 (5.0-9.0) Urine Specific [place] 1.014 (1.001-1.035) Urine Protein Trace (Negative) H Urine Ketones Negative (Negative) Urine Blood 1+ /uL (Negative) H Urine Nitrite Negative (Negative) Urine Bilirubin Negative (Negative) Urine Urobilinogen Normal mg/dL (Negative) Urine Leukocyte Esterase Negative /uL (Negative) Urine RBC 2 /hpf (0 - 4) Urine Microscopic WBC 1 /HPF (0-5) Urine Squamous Epithelial Cells Few /hpf (<5) Urine Bacteria None seen /hpf (None Seen) Urine Glucose Normal mg/dL (Normal) Microbiology Microbiology Date/Time Source Procedure Growth Status 07/06/24 16:27 Sputum Gram Stain - Final Resulted 07/06/24 16:27 Sputum Respiratory Culture - Preliminary Resulted Assessment/Plan Assessment/Plan # Possible Sepsis - Cont Abx, Get Sputum Cultures, CT Chest noted # Pancytopenia - Bone marrow biopsy # Possible Aspiration PNA - Abx - Sputum Cultures # H/o Lung Cancer # Moderate-Severe protein malnutrition - Dietary Cx Critical care time 41 mins Plan discussed with: Patient My Orders Orders - RAJAT ENCARNACION MD Procedure Category Date Status Time Pheresis Platelets BBK 07/07/24 Logged 10:29 Complete Blood Count LAB 07/08/24 Verified 04:00 Basic Metabolic Panel LAB 07/08/24 Verified 04:00 Date of Service: Jul 07, 2024 Billing Provider: RAJAT ENCARNACION MD Common Visit Codes: [id number] CARE 30-74 MIN RAJAT ENCARNACION MD Jul 07, 2024 14:09
[2024-07-08] VITALS (10 sets, daily range): BP systolic 115–139; BP diastolic 58–62; PULSE 80–95; RESP 17–20; TEMP 97.7–98.4; O2SAT 96–100
[2024-07-08 07:37] LABS: Chloride 101 mmol/L (98-107); Sodium 140 mmol/L (136-145)
[2024-07-08 07:38] LABS: Anion Gap 6 (5-15); Basophils # (auto) 0 10 ^3/uL (0-0.2); Calcium 8.9 mg/dL (8.7-10.4); Carbon Dioxide 33 mmol/L (20-31); Eosinophils # (auto) 0.1 10 ^3/uL (0-0.8); Hemoglobin 8.7 g/dL (12.2-16.2); Lymphocytes # (auto) 0.2 10 ^3/uL (0.4-5.4); Mean Corpuscular Hemoglobin 30.3 pg (28.0-32.0); Monocytes # (auto) 0.1 10 ^3/uL (0-1.3); Neutrophils # (auto) 0.1 10 ^3/uL (1.6-8.6); Potassium 3.4 mmol/L (3.5-5.1)
[2024-07-08 07:41] LABS: Basophils % (auto) 2.2 % (0.0-2.0); Hematocrit 25.6 % (36.0-46.0); Mean Corpuscular Hgb Conc. 33.9 g/dL (32.0-36.0); Mean Corpuscular Volume 89.3 fL (80.0-100.0); Monocytes % (auto) 9.7 % (0.0-12.0); Neutrophils % (auto) 25.5 % (37.0-80.0); Nucleated Red Blood Cells % 0.3 %; Platelet Count (auto) 32 10^3/uL (140-450); Red Blood Cells 2.86 10^6/uL (4.0-5.20); Red Cell Distribution Width 16.6 % (11.8-14.3)
[2024-07-08 07:43] LABS: Glucose 90 mg/dL (74-106)
[2024-07-08 07:44] LABS: Blood Urea Nitrogen 9 mg/dL (9-23)
[2024-07-08] MEDS: PIPERACILLIN-TAZOB 3.375GM 100 ML IV SCH (07:44)
[2024-07-08 07:52] LABS: Eosinophils % (auto) 21.6 % (0.0-7.0)
[2024-07-08 07:54] LABS: White Blood Cell 0.6 10^3/uL (4.4-10.8)
[2024-07-08] MEDS: FILGRASTIM(TBO) 480 MCG/0.8 ML SYRG SC SCH (09:57)
--- NOTE | 2024-07-08 16:20 | DVHPN2 ---
Subjective Seen and examined at bedside, Still short of breath. Add Lasix. Reviewed: Care Plan, H&P, Labs, Medications, Previous Orders, Radiology Changes from previous H/P or p: No Changes Eyes: No Pain, No Vision change, No Conjunctivae inflammation, No Eyelid inflammation, No Other, No Redness ENT: No Ear pain, No Ear discharge, No Nose pain, No Nose discharge, No Nose congestion, No Mouth pain, No Mouth swelling, No Throat pain, No Throat swelling, No Other Cardiovascular: No Chest Pain, No Palpitations, No Orthopnea, No Paroxysmal Noc. Dyspnea, No Edema, No Lt Headedness, No Other Respiratory: No Cough, No Dry, No Shortness of breath, No SOB with excertion, No Wheezing, No Hemoptysis, No Pleuritic Pain, No Sputum, No Other Gastrointestinal: No Nausea, No Vomiting, No Abdominal Pain, No Diarrhea, No Constipation, No Melena, No Hematochezia, No Other Genitourinary: No Dysuria, No Frequency, No Incontinence, No Hematuria, No Retention, No Other Musculoskeletal: other (Left lower extremity redness/swelling); No neck pain, No shoulder pain, No arm pain, No back pain, No hand pain, No leg pain, No foot pain Skin: No Rash, No Lesions, No Jaundice, No Bruising, No Other Objective Vitals Vital Signs Date Time Temp Pulse Resp B/P (MAP) Pulse Ox O2 Delivery O2 Flow Rate FiO2 07/08/24 13:00 98.4 89 19 131/58 (82) 96 98.4 07/08/24 08:00 Nasal Cannula* 3 32 Intake/Output Intake and Output 07/08/24 07:00 Intake Total 1382 ml Output Total 4 ml Balance 1378 ml Intake Oral 520 ml IV Total 400 ml Blood Product 462 ml Output Urine Total 4 ml # Voids 4 # Bowel Movements 2 General Appearance: Alert, Cooperative Lungs: Other (Creps) Cardiovascular: Regular rate, Normal S1 Abdomen: Normal bowel sounds, Soft, No tenderness Extremities: No edema Skin: Other (Bruising) Medications Current Medications Medications Dose Ordered Sig/[place] Route Start Time Stop Time Status Last Admin Dose Admin Fluoxetine HCl 20 mg DAILY PO 06/30/24 10:00 07/08/24 09:34 20 MG Gabapentin 100 mg DAILY PO 06/30/24 10:00 07/08/24 09:34 100 MG Aspirin 81 mg DAILY PO 06/30/24 10:00 07/02/24 08:49 81 MG Alprazolam 0.5 mg Q8HPRN PRN PO 06/29/24 14:45 07/08/24 06:18 0.5 MG Acetaminophen/ Hydrocodone Bitart 1 tab Q4HP PRN PO 06/29/24 14:45 07/08/24 15:56 1 TAB Ondansetron HCl 4 mg Q4HP PRN IV 06/29/24 14:45 Docusate Sodium 100 mg BIDPRN PRN PO 06/29/24 14:45 Acetaminophen 650 mg Q6HP PRN PO 06/29/24 14:45 Morphine Sulfate 2 mg Q30M PRN IV 06/29/24 16:30 Nitroglycerin 0.4 mg Q5MINP PRN SL 06/29/24 16:30 Doxycycline Hyclate 100 ml @ 50 mls/hr Q12H IV 07/02/24 10:30 07/08/24 09:36 50 MLS/HR Digoxin 0.125 mg DAILY PO 07/04/24 10:00 07/08/24 09:35 0.125 MG Al Hydrox/Mg Hydrox/Simethicone 10 ml Q8HP MT 07/04/24 14:00 07/08/24 14:00 10 ML Albuterol 2.5 mg Q6HPRN PRN NEB 07/06/24 02:30 07/08/24 03:41 2.5 MG Tbo-Filgrastim 480 mcg DAILY SC 07/07/24 10:00 07/10/24 09:59 07/08/24 09:57 480 MCG Meropenem 50 ml @ 17 mls/hr Q8HR IV 07/08/24 22:00 Laboratory Results Laboratory Tests 07/08/24 06:26 Chemistry Test 07/08/24 06:26 Calcium Level 8.9 mg/dL (8.7-10.4) Urinalysis Test 06/29/24 10:13 Urine Color Yellow (Yellow) Urine Clarity Clear (Clear) Urine pH 7.0 (5.0-9.0) Urine Specific [place] 1.014 (1.001-1.035) Urine Protein Trace (Negative) H Urine Ketones Negative (Negative) Urine Blood 1+ /uL (Negative) H Urine Nitrite Negative (Negative) Urine Bilirubin Negative (Negative) Urine Urobilinogen Normal mg/dL (Negative) Urine Leukocyte Esterase Negative /uL (Negative) Urine RBC 2 /hpf (0 - 4) Urine Microscopic WBC 1 /HPF (0-5) Urine Squamous Epithelial Cells Few /hpf (<5) Urine Bacteria None seen /hpf (None Seen) Urine Glucose Normal mg/dL (Normal) Microbiology Microbiology Date/Time Source Procedure Growth Status 07/06/24 16:27 Sputum Gram Stain - Final Resulted 07/06/24 16:27 Sputum Respiratory Culture - Preliminary Resulted Assessment/Plan Assessment/Plan # Possible Sepsis - Cont Abx, Get Sputum Cultures, CT Chest noted # Pancytopenia - Bone marrow biopsy # Possible Aspiration PNA - Abx - Sputum Cultures # H/o Lung Cancer # Moderate-Severe protein malnutrition - Dietary Cx Critical care time 36 mins Plan discussed with: Patient My Orders Orders - RAJAT ENCARNACION MD Procedure Category Date Status Time Meropenem 1gm Ivpb PHA 07/08/24 In Process (Merrem 1gm/ Ns) 22:00 Date of Service: Jul 08, 2024 Billing Provider: RAJAT ENCARNACION MD Common Visit Codes: [id number] CARE 30-74 MIN RAJAT ENCARNACION MD Jul 08, 2024 16:20
[2024-07-08] MEDS: FUROSEMIDE 20 MG/2 ML VIAL IV ONE (16:59)
[2024-07-08] MEDS: MEROPENEM 1GM IVPB 50 ML IV SCH (21:07)
[2024-07-09] VITALS (16 sets, daily range): BP systolic 105–125; BP diastolic 54–68; PULSE 86–93; RESP 15–20; TEMP 97.4–97.9; O2SAT 0–100
[2024-07-09 07:03] LABS: Hemoglobin 7.8 g/dL (12.2-16.2)
[2024-07-09 07:05] LABS: Hematocrit 22.8 % (36.0-46.0); Mean Corpuscular Hemoglobin 30.2 pg (28.0-32.0); Mean Corpuscular Hgb Conc. 34.1 g/dL (32.0-36.0); Mean Corpuscular Volume 88.5 fL (80.0-100.0); Platelet Count (auto) 33 10^3/uL (140-450); Red Blood Cells 2.57 10^6/uL (4.0-5.20); Red Cell Distribution Width 17.1 % (11.8-14.3)
[2024-07-09 07:22] LABS: White Blood Cell 0.8 10^3/uL (4.4-10.8)
[2024-07-09 07:23] LABS: Band Neutrophils % (manual) 0; Basophils % (manual) 0 (0.0-2.0); Blast Cells 0; Metamyelocytes % 0; Myelocytes % 0; Promyelocytes % 0; Reactive Lymphocytes 0
[2024-07-09 07:30] LABS: Anion Gap 5 (5-15); Chloride 102 mmol/L (98-107); Sodium 141 mmol/L (136-145)
[2024-07-09 07:31] LABS: Calcium 8.9 mg/dL (8.7-10.4)
[2024-07-09 07:32] LABS: Carbon Dioxide 34 mmol/L (20-31); Potassium 3.3 mmol/L (3.5-5.1)
[2024-07-09 07:36] LABS: BUN/Creatinine Ratio 13.2 (10.0-20.0); Blood Urea Nitrogen 7 mg/dL (9-23); Glucose 90 mg/dL (74-106)
[2024-07-09 09:09] LABS: Eosinophils % (manual) 19 (0-7); Lymphocytes % (manual) 47 (10.0-50.0); Monocytes % (manual) 23 (0-12); Platelet Estimate Decreased
[2024-07-09] MEDS: FUROSEMIDE 20 MG/2 ML VIAL IV SCH (10:02)
--- NOTE | 2024-07-09 11:48 | DVHPN2 ---
Subjective Seen and examined at bedside, WBC still low. Await bone marrow biopsy. Encouraged out of bed to chair. Reviewed: Care Plan, H&P, Labs, Medications, Previous Orders, Radiology Changes from previous H/P or p: No Changes Eyes: No Pain, No Vision change, No Conjunctivae inflammation, No Eyelid inflammation, No Other, No Redness ENT: No Ear pain, No Ear discharge, No Nose pain, No Nose discharge, No Nose congestion, No Mouth pain, No Mouth swelling, No Throat pain, No Throat swelling, No Other Cardiovascular: No Chest Pain, No Palpitations, No Orthopnea, No Paroxysmal Noc. Dyspnea, No Edema, No Lt Headedness, No Other Respiratory: No Cough, No Dry, No Shortness of breath, No SOB with excertion, No Wheezing, No Hemoptysis, No Pleuritic Pain, No Sputum, No Other Gastrointestinal: No Nausea, No Vomiting, No Abdominal Pain, No Diarrhea, No Constipation, No Melena, No Hematochezia, No Other Genitourinary: No Dysuria, No Frequency, No Incontinence, No Hematuria, No Retention, No Other Musculoskeletal: other (Left lower extremity redness/swelling); No neck pain, No shoulder pain, No arm pain, No back pain, No hand pain, No leg pain, No foot pain Skin: No Rash, No Lesions, No Jaundice, No Bruising, No Other Objective Vitals Vital Signs Date Time Temp Pulse Resp B/P (MAP) Pulse Ox O2 Delivery O2 Flow Rate FiO2 07/09/24 10:02 125/58 07/09/24 10:01 93 07/09/24 09:00 97.8 16 95 97.8 07/09/24 08:00 Nasal Cannula* 2 28 Intake/Output Intake and Output 07/09/24 07:00 Intake Total 1440 ml Balance 1440 ml Intake Oral 1090 ml IV Total 350 ml # Voids 8 # Bowel Movements 1 General Appearance: Alert, Cooperative Lungs: Other (Creps) Cardiovascular: Regular rate, Normal S1 Abdomen: Normal bowel sounds, Soft, No tenderness Extremities: No edema Skin: Other (Bruising) Medications Current Medications Medications Dose Ordered Sig/[place] Route Start Time Stop Time Status Last Admin Dose Admin Fluoxetine HCl 20 mg DAILY PO 06/30/24 10:00 07/09/24 09:56 20 MG Gabapentin 100 mg DAILY PO 06/30/24 10:00 07/09/24 10:00 100 MG Aspirin 81 mg DAILY PO 06/30/24 10:00 07/02/24 08:49 81 MG Alprazolam 0.5 mg Q8HPRN PRN PO 06/29/24 14:45 07/09/24 10:25 0.5 MG Acetaminophen/ Hydrocodone Bitart 1 tab Q4HP PRN PO 06/29/24 14:45 07/09/24 07:33 1 TAB Ondansetron HCl 4 mg Q4HP PRN IV 06/29/24 14:45 Docusate Sodium 100 mg BIDPRN PRN PO 06/29/24 14:45 Acetaminophen 650 mg Q6HP PRN PO 06/29/24 14:45 Nitroglycerin 0.4 mg Q5MINP PRN SL 06/29/24 16:30 Doxycycline Hyclate 100 ml @ 50 mls/hr Q12H IV 07/02/24 10:30 07/09/24 10:28 50 MLS/HR Digoxin 0.125 mg DAILY PO 07/04/24 10:00 07/09/24 10:01 0.125 MG Al Hydrox/Mg Hydrox/Simethicone 10 ml Q8HP MT 07/04/24 14:00 07/09/24 05:10 10 ML Albuterol 2.5 mg Q6HPRN PRN NEB 07/06/24 02:30 07/09/24 07:45 2.5 MG Tbo-Filgrastim 480 mcg DAILY SC 07/07/24 10:00 07/10/24 09:59 07/09/24 10:04 480 MCG Meropenem 50 ml @ 17 mls/hr Q8HR IV 07/08/24 22:00 07/09/24 05:05 17 MLS/HR Furosemide 20 mg DAILY IV 07/09/24 10:00 07/09/24 10:02 20 MG Laboratory Results Laboratory Tests 07/09/24 05:03 Chemistry Test 07/09/24 05:03 Calcium Level 8.9 mg/dL (8.7-10.4) Urinalysis Test 06/29/24 10:13 Urine Color Yellow (Yellow) Urine Clarity Clear (Clear) Urine pH 7.0 (5.0-9.0) Urine Specific [place] 1.014 (1.001-1.035) Urine Protein Trace (Negative) H Urine Ketones Negative (Negative) Urine Blood 1+ /uL (Negative) H Urine Nitrite Negative (Negative) Urine Bilirubin Negative (Negative) Urine Urobilinogen Normal mg/dL (Negative) Urine Leukocyte Esterase Negative /uL (Negative) Urine RBC 2 /hpf (0 - 4) Urine Microscopic WBC 1 /HPF (0-5) Urine Squamous Epithelial Cells Few /hpf (<5) Urine Bacteria None seen /hpf (None Seen) Urine Glucose Normal mg/dL (Normal) Microbiology Microbiology Date/Time Source Procedure Growth Status 07/06/24 16:27 Sputum Gram Stain - Final Resulted 07/06/24 16:27 Sputum Respiratory Culture - Preliminary Resulted Assessment/Plan Assessment/Plan # Possible Sepsis - Cont Abx, Get Sputum Cultures, CT Chest noted # Pancytopenia - Bone marrow biopsy # Possible Aspiration PNA - Abx - Sputum Cultures # H/o Lung Cancer # Pulm HTN - Lasix IV # Moderate-Severe protein malnutrition - Dietary Cx Critical care time 38 mins Plan discussed with: Patient, Spouse My Orders Orders - RAJAT ENCARNACION MD Procedure Category Date Status Time Meropenem 1gm Ivpb PHA 07/08/24 In Process (Merrem 1gm/ Ns) 22:00 Furosemide Injection PHA 07/09/24 In Process (Lasix Injection) 10:00 Date of Service: Jul 09, 2024 Billing Provider: RAJAT ENCARNACION MD Common Visit Codes: [id number] INP/OBS CARE(HIGH) RAJAT ENCARNACION MD Jul 09, 2024 11:48
--- NOTE | 2024-07-09 13:27 | DVHPN2 ---
Progress Note - Dictate Date Seen: Jul 09, 2024 Has the PT tested + for MRSA If YES, has PT been informed?: Yes Medical Necessity Reason Pt with a Central, PICC or Fol: No Subjective the patient is feeling somewhat fatigued and tired. She is on O2. No active bleeding vital signs Vital Sign Date Time Temp Pulse Resp B/P (MAP) Pulse Ox O2 Delivery O2 Flow Rate FiO2 07/09/24 13:00 97.4 91 16 125/55 (78) 99 97.4 07/09/24 08:00 Nasal Cannula* 2 28 Total Intake and Output 07/08/24 07/08/24 07/09/24 15:00 23:00 07:00 Intake Total 200 ml 660 ml 580 ml Balance 200 ml 660 ml 580 ml medications Current Medications Medications Dose Ordered Sig/[place] Route Start Time Stop Time Status Last Admin Dose Admin Fluoxetine HCl 20 mg DAILY PO 06/30/24 10:00 07/09/24 09:56 20 MG Gabapentin 100 mg DAILY PO 06/30/24 10:00 07/09/24 10:00 100 MG Aspirin 81 mg DAILY PO 06/30/24 10:00 07/02/24 08:49 81 MG Alprazolam 0.5 mg Q8HPRN PRN PO 06/29/24 14:45 07/09/24 10:25 0.5 MG Acetaminophen/ Hydrocodone Bitart 1 tab Q4HP PRN PO 06/29/24 14:45 07/09/24 07:33 1 TAB Ondansetron HCl 4 mg Q4HP PRN IV 06/29/24 14:45 Docusate Sodium 100 mg BIDPRN PRN PO 06/29/24 14:45 Acetaminophen 650 mg Q6HP PRN PO 06/29/24 14:45 Nitroglycerin 0.4 mg Q5MINP PRN SL 06/29/24 16:30 Doxycycline Hyclate 100 ml @ 50 mls/hr Q12H IV 07/02/24 10:30 07/09/24 10:28 50 MLS/HR Digoxin 0.125 mg DAILY PO 07/04/24 10:00 07/09/24 10:01 0.125 MG Al Hydrox/Mg Hydrox/Simethicone 10 ml Q8HP MT 07/04/24 14:00 07/09/24 05:10 10 ML Albuterol 2.5 mg Q6HPRN PRN NEB 07/06/24 02:30 07/09/24 07:45 2.5 MG Tbo-Filgrastim 480 mcg DAILY SC 07/07/24 10:00 07/10/24 09:59 07/09/24 10:04 480 MCG Meropenem 50 ml @ 17 mls/hr Q8HR IV 07/08/24 22:00 07/09/24 05:05 17 MLS/HR Furosemide 20 mg DAILY IV 07/09/24 10:00 07/09/24 10:02 20 MG objective Moderately built and nourished, in no acute distress, alert and oriented. O2 No jaundice Head and neck: Unremarkable for any masses or neck nodes. No conjunctival or mucosal hemorrhage Lungs: Clear Cardiovascular: S1-S2 heard well Abdomen: No organomegaly, tenderness or ascites. Bowel sounds are present. Extremities: No clubbing edema cyanosis or calf tenderness. Skin: Significant ecchymosis of the upper extremity Lymphadenopathy: None Neurological exam: No focal deficit laboratory and microbiology Laboratory Tests 07/09/24 05:03 Test 07/09/24 05:03 Range/Units Serum Glucose 90 74-106 mg/dL Assessment/Plan 1. Pancytopenia with pneumonia and sepsis. Normal PT PTT. Status post [address] of the chest showed moderate bilateral multifocal pneumonia small bilateral pleural effusion. Age indeterminate compression deformities of several upper thoracic vertebrae without retropulsion No evidence of DIC. The blood smear showed no abnormal cells except thrombocytopenia and leukopenia The bone marrow aspiration biopsy was done and only the flow cytometry is available which shows relatively increased atypical myeloid blast (9.7% of the sample) immunophenotypic features of myeloid dysmaturation. Relatively eosinophilia (15% of the sample These findings are compatible with high-grade myeloid neoplasm and the differential diagnosis could include high-grade myelodysplastic syndrome, progressed myeloproliferative neoplasm and evolving acute myeloid leukemia morphological data, cytogenetics and AML fish panel is pending The patient seems to be behaving like an aggressive myeloid neoplasm with persistent pancytopenia 2. History of lung cancer status post chemoradiation therapy at [facility] 2021 and the patient states that she has been in remission Plan: Has there is a concern about acute myeloid leukemia with a refractory pancytopenia I will suggest the patient be transferred to a higher level of care I have discussed the case with Dr. Marek Alejandre at [facility] who has accepted the patient and will make arrangements for transfer I did discuss this with the patient who is accepting and understanding Dietary Evaluation Review Recommendations by RD: Protein Supplementation Comments: 1) Initiate Ensure enlive bid d/t low PO intake 2) Initiate multivitamin qd 3) Continue to monitor appetite, labs, and skin integrity Expected Outcomes/Goals: 1) appetite and labs to improve 2) wound to improve 3) f/u in 5 days Plan discussed with: Patient CC Plasma Assessment Blood Product Administration S: [id number] ESE MABRY MD Jul 09, 2024 13:27
[2024-07-09] MEDS: POTASSIUM CHL 20 Meq TABLET PO ONE (14:48)
[2024-07-09] MEDS: FLUCONAZOLE 100 MG TAB PO ONE (18:45)
[2024-07-10] VITALS (10 sets, daily range): BP systolic 117–131; BP diastolic 50–59; PULSE 68–95; RESP 17–20; TEMP 36.6; O2SAT 98–100
[2024-07-10 05:01] LABS: COVID19 ANTIGEN SOFIA FIA NEGATIVE (NEGATIVE)
[2024-07-10 06:49] LABS: Chloride 104 mmol/L (98-107); Potassium 3.8 mmol/L (3.5-5.1); Sodium 142 mmol/L (136-145)
[2024-07-10 06:50] LABS: Anion Gap 4 (5-15); Carbon Dioxide 34 mmol/L (20-31)
[2024-07-10 06:51] LABS: Calcium 9.1 mg/dL (8.7-10.4)
[2024-07-10 06:55] LABS: BUN/Creatinine Ratio 10.9 (10.0-20.0); Glucose 85 mg/dL (74-106)
[2024-07-10 07:05] LABS: Blood Urea Nitrogen 6 mg/dL (9-23)
[2024-07-10 07:08] LABS: Hematocrit 25.8 % (36.0-46.0); Hemoglobin 8.6 g/dL (12.2-16.2); Mean Corpuscular Hemoglobin 30.2 pg (28.0-32.0); Mean Corpuscular Hgb Conc. 33.5 g/dL (32.0-36.0); Mean Corpuscular Volume 90.2 fL (80.0-100.0); Platelet Count (auto) 54 10^3/uL (140-450); Red Blood Cells 2.86 10^6/uL (4.0-5.20)
[2024-07-10 07:22] LABS: Basophils % (manual) 0 (0.0-2.0); Blast Cells 0; Metamyelocytes % 0; Myelocytes % 0; Promyelocytes % 0; Reactive Lymphocytes 0
[2024-07-10 08:22] LABS: Anisocytosis Slight; Band Neutrophils % (manual) 1; Eosinophils % (manual) 16 (0-7); Lymphocytes % (manual) 41 (10.0-50.0); Monocytes % (manual) 31 (0-12); Platelet Estimate Decreased
[2024-07-10] MEDS: FLUCONAZOLE 100 MG TAB PO SCH (08:30)
--- NOTE | 2024-07-10 11:14 | DVHDS2 ---
Discharge Summary Date of Admission Jun 29, 2024 at 16:07 Date of Discharge: Jul 10, 2024 Admitting Diagnosis Possible Sepsis Labs/Diagnostic Data: Laboratory Results Test 07/10/24 04:47 07/09/24 23:30 07/08/24 06:26 07/07/24 06:26 White Blood Count 1.0 10^3/uL (4.4-10.8) Red Blood Count 2.86 10^6/uL (4.0-5.20) Hemoglobin 8.6 g/dL (12.2-16.2) Hematocrit 25.8 % (36.0-46.0) Mean Corpuscular Volume 90.2 fL (80.0-100.0) Mean Corpuscular Hemoglobin 30.2 pg (28.0-32.0) Mean Corpuscular Hemoglobin Concent 33.5 g/dL (32.0-36.0) Red Cell Distribution Width 17.0 % (11.8-14.3) Platelet Count 54 10^3/uL (140-450) Mean Platelet Volume 8.2 fL (6.9-10.8) Neutrophils (%) (Auto) % (37.0-80.0) Lymphocytes (%) (Auto) % (10.0-50.0) Monocytes (%) (Auto) % (0.0-12.0) Eosinophils (%) (Auto) % (0.0-7.0) Basophils (%) (Auto) % (0.0-2.0) Neutrophils # (Auto) 10 ^3/uL (1.6-8.6) Lymphocytes # (Auto) 10 ^3/uL (0.4-5.4) Monocytes # (Auto) 10 ^3/uL (0-1.3) Differential Total Cells Counted 100.0 (100) Neutrophils % (Manual) 11 (37.0-80.0) Band Neutrophils % (Manual) 1 Lymphocytes % (Manual) 41 (10.0-50.0) Monocytes % (Manual) 31 (0-12) Eosinophils % (Manual) 16 (0-7) Basophils % (Manual) 0 (0.0-2.0) Metamyelocytes % (manual) 0 Myelocytes % (Manual) 0 Promyelocytes % (Manual) 0 Blast Cells % (Manual) 0 Reactive Lymphocytes 0 Platelet Estimate Decreased Anisocytosis (manual) Slight Sodium Level 142 mmol/L (136-145) Potassium Level 3.8 mmol/L (3.5-5.1) Chloride Level 104 mmol/L (98-107) Carbon Dioxide Level 34 mmol/L (20-31) Anion Gap 4 (5-15) Blood Urea Nitrogen 6 mg/dL (9-23) Creatinine 0.55 mg/dL (0.550-1.02) Glomerular Filtration Rate Calc 102 mL/min (>90) BUN/Creatinine Ratio 10.9 (10.0-20.0) Serum Glucose 85 mg/dL (74-106) Calcium Level 9.1 mg/dL (8.7-10.4) SARS-CoV-2 Antigen (Rapid) Negative (NEGATIVE) Eosinophils # (Auto) 0.1 10 ^3/uL (0-0.8) Basophils # (Auto) 0 10 ^3/uL (0-0.2) Nucleated Red Blood Cells 0.3 % Total Bilirubin 0.7 mg/dL (0.2-1.0) Aspartate Amino Transferase (AST) 19 U/L (13-40) Alanine Aminotransferase (ALT) < 9 U/L (7-40) Alkaline Phosphatase 149 U/L (46-116) Total Protein 5.2 g/dL (5.7-8.2) Albumin 2.6 g/dL (3.2-4.8) Test 07/06/24 11:55 07/06/24 05:56 07/04/24 05:02 07/01/24 20:00 Prothrombin Time 11.4 sec (9.3-11.8) Prothrombin Time INR 1.08 (0.9-1.15) Activated Partial Thromboplast Time 36.3 SEC (24.5-34.5) Random Vancomycin Level 14.2 ug/mL (5-10) Clumped Platelets None Reticulocyte Count (auto) 0.59 % (0.5-1.5) Lactate Dehydrogenase 264 U/L (120-246) Vancomycin Level Trough 21.0 ug/mL (5-10) Digoxin Level 0.82 ng/mL (0.8-2) Magnesium Level 1.9 mg/dL (1.6-2.6) Influenza Type A Antigen Negative (Negative) Influenza Type B Antigen Negative (Negative) Test 07/01/24 10:15 07/01/24 04:45 06/30/24 08:49 06/29/24 19:12 B-Type Natriuretic Peptide 295.92 pg/mL (0-100) Free Thyroxine (T4) Calculated 0.85 ng/dL (0.89-1.76) Total Triiodothyronine (TT3) 0.80 ng/mL (0.60-1.81) Triglycerides Level 77 mg/dL (< 150) Cholesterol Level 101 mg/dL (< 200) LDL Cholesterol 65 mg/dL (< 100) HDL Cholesterol 28 mg/dL (40-59) Thyroid Stimulating Hormone (TSH) 4.94 uIU/mL (0.55-4.78) Hepatitis B Surface Antigen Negative (Negative) Hepatitis C Antibody Negative (Negative) Troponin I High Sensitivity 67 ng/L (</=34) Test 06/29/24 10:20 06/29/24 10:13 POC Glucose 80 mg/dl (70-106) Urine Color Yellow (Yellow) Urine Clarity Clear (Clear) Urine pH 7.0 (5.0-9.0) Urine Specific [place] 1.014 (1.001-1.035) Urine Protein Trace (Negative) Urine Ketones Negative (Negative) Urine Blood 1+ /uL (Negative) Urine Nitrite Negative (Negative) Urine Bilirubin Negative (Negative) Urine Urobilinogen Normal mg/dL (Negative) Urine Leukocyte Esterase Negative /uL (Negative) Urine RBC 2 /hpf (0 - 4) Urine Microscopic WBC 1 /HPF (0-5) Urine Squamous Epithelial Cells Few /hpf (<5) Urine Bacteria None seen /hpf (None Seen) Urine Glucose Normal mg/dL (Normal) Other Laboratory Tests 07/10/24 04:47 Brief Hx & Hospital Course: This is a 64-year-old female who was brought into the ED for evaluation of altered level of consciousness. She has a past medical history relevant for lung cancer, arthritis, depression, anxiety. Patient was brought in after having a mechanical fall at home when she was trying to use the restroom, stated that the patient was confused, she had left lower extremity redness and swelling. In the ED they performed a chest x-ray which revealed a left upper lobe consolidation, she was started on IV antibiotics. Patient was admitted for sepsis due to possible aspiration pneumonia. Patient developed pancytopenia underwent bone marrow biopsy which shows acute myeloid leukemia patient was consulted by Hematology Oncology. Patient will be transferred to higher level of care to [facility] for further care and management. I discussed this with the patient in detail patient verbalized understanding and agrees with plan as she was treated for her lung cancer also at [facility]. 1. Pancytopenia with pneumonia and sepsis. Normal PT PTT. Status post [address] of the chest showed moderate bilateral multifocal pneumonia small bilateral pleural effusion. Age indeterminate compression deformities of several upper thoracic vertebrae without retropulsion No evidence of DIC. The blood smear showed no abnormal cells except thrombocytopenia and leukopenia The bone marrow aspiration biopsy was done and only the flow cytometry is available which shows relatively increased atypical myeloid blast (9.7% of the sample) immunophenotypic features of myeloid dysmaturation. Relatively eosinophilia (15% of the sample These findings are compatible with high-grade myeloid neoplasm and the differential diagnosis could include high-grade myelodysplastic syndrome, progressed myeloproliferative neoplasm and evolving acute myeloid leukemia morphological data, cytogenetics and AML fish panel is pending The patient seems to be behaving like an aggressive myeloid neoplasm with persistent pancytopenia 2. History of lung cancer status post chemoradiation therapy at [facility] 2021 and the patient states that she has been in remission Condition at Discharge: Poor Final Diagnosis/Problems List # Possible Sepsis - Cont Abx, Get Sputum Cultures, CT Chest noted # Pancytopenia - Bone marrow biopsy # Possible Aspiration PNA - Abx - Sputum Cultures # H/o Lung Cancer # Pulm HTN - Lasix IV # Moderate-Severe protein malnutrition Discharge Disposition: Home Discharge Instruct/Medications Diet: Regular Activity: Light activity Discharge Statement: "Patient was advised to return to the ER or call 911 if any headaches, dizziness, shortness of breath, chest pain, abdominal pain, bleeding, fevers, or worsening of medical condition. Patient was counseled about treatment plan, medications, possible side effects, patientverbalized understanding. All questions were answered to the best of my ability. This discharge took greater then 30 minutes in planning, reviewing documentation, counseling the patient, and discussing with other team members." ASSESSMENT ASSESSMENT Assessment Date of Service: Jul 10, 2024 Billing Provider: RAJAT ENCARNACION MD Common Visit Codes: 79706-SCT/OBS DISCH DAY >30min RAJAT ENCARNACION MD Jul 10, 2024 11:14
== END 2024-07-10 18:56 | disposition short-term general hospital (02) | DRG 871 ==
LOC: ER 09:44 → EDBD 09:44 → OVERFLOW 16:07 → ER 16:09 → TELE-EAST 21:21 → TELE-CENTR 07-02 15:52 → CENTRAL 07-09 21:38
PROVIDERS: ADMIT Internal Medicine; ATTEND Internal Medicine
PROC: 30233R1 Transfusion of Nonautologous Platelets into Peripheral Vein, Percutaneous Approach (ICD-10-PCS; 2024-07-05)
PROC: 079T3ZX Drainage of Bone Marrow, Percutaneous Approach, Diagnostic (ICD-10-PCS; principal; 2024-07-06)
PROC: 07DR3ZX Extraction of Iliac Bone Marrow, Percutaneous Approach, Diagnostic (ICD-10-PCS; 2024-07-06)
DX: A41.9 Sepsis, unspecified organism (principal); E43 Unspecified severe protein-calorie malnutrition; G93.41 Metabolic encephalopathy; J69.0 Pneumonitis due to inhalation of food and vomit; J18.9 Pneumonia, unspecified organism; I21.A1 Myocardial infarction type 2; E87.1 Hypo-osmolality and hyponatremia; I48.92 Unspecified atrial flutter; D61.818 Other pancytopenia; C92.00 Acute myeloblastic leukemia, not having achieved remission; Z20.822 Contact with and (suspected) exposure to COVID-19; F41.9 Anxiety disorder, unspecified; F32.A Depression, unspecified; D69.59 Other secondary thrombocytopenia; D70.3 Neutropenia due to infection; I35.1 Nonrheumatic aortic (valve) insufficiency; I48.91 Unspecified atrial fibrillation; F17.210 Nicotine dependence, cigarettes, uncomplicated; I27.20 Pulmonary hypertension, unspecified; R29.6 Repeated falls; Z85.118 Personal history of other malignant neoplasm of bronchus and lung; Z92.21 Personal history of antineoplastic chemotherapy; Z92.3 Personal history of irradiation; Z68.24 Body mass index [BMI] 24.0-24.9, adult; Z79.899 Other long term (current) drug therapy
CPT/HCPCS: 10005; 36415; 70450; 70551; 71045; 71250; 72192; 77012; 80048; 80053; 80061; 80162; 80202; 81001; 82565; 82962; 83615; 83735; 83880; 84439; 84443; 84480; 84484; 85007; 85025; 85027; 85045; 85060; 85610; 85730; 86803; 86850; 86900; 86901; 87070; 87077; 87205; 87340; 87426; 87804; 93005; 93306; 93886; 94640; 96361; 96365; 97163; 99291; G0378; J0153; J0692; J1447; J2003; J2185; J2250; J2543